=== PATIENT | female | born 1985 | race Hispanic/Latino ===

== ENCOUNTER 2020-11-06 11:16 | Inpatient (IN) | payer OTHER ==
[~2020-11-06] VITALS: Ht 152.4 cm; Wt 89.3 kg
[2020-11-06 11:45] LABS: BASOPHILS % (AUTO) 0.3 % (0.0-5.0); EOSINOPHILS % (AUTO) 0.3 % (0.0-8.0); HEMATOCRIT 38.2 % (36-48); LYMPHOCYTES % (AUTO) 22.7 % (21.0-51.0); MEAN CORPUSCULAR HEMOGLOBIN 29.1 pg (27.0-33.0); MEAN CORPUSCULAR HGB CONC 34.6 g/dL (32.0-36.0); MEAN CORPUSCULAR VOLUME 84.3 fL (79-99); MONOCYTES % (AUTO) 7.7 % (3.0-13.0); NEUTROPHILS % (AUTO) 68.7 % (40.0-77.0); PLATELET COUNT (AUTO) 162 K/uL (130-400); RED BLOOD CELL COUNT(AUTO) 4.53 MIL/uL (4.00-5.50); RED CELL DISTRIBUTION WIDTH 13.2 % (11.0-15.5)
[2020-11-06 11:56] VITALS: BP 87/51
[2020-11-06 11:56] LABS: CREATININE 0.8 mg/dL (0.5-1.5); POTASSIUM 3.4 mmol/L (3.5-5.1)
[2020-11-06 12:00] LABS: ALBUMIN 2.8 g/dL (3.5-5.0); BILIRUBIN,TOTAL 0.4 mg/dL (0.2-1.0); TOTAL PROTEIN, SERUM 7.6 g/dL (6.0-8.3)
[2020-11-06] MEDS ORDERED: AZITHROMYCIN 250 MG TABLET PO ONE ×2 (12:00→13:37)
[2020-11-06] MEDS ORDERED: ALBUTEROL INHALER 90MCG/INH IH PRN (12:00)
[2020-11-06] MEDS ORDERED: ACETAMINOPHEN WITH CODEINE 1 TAB TAB PO ONE (12:00)
[2020-11-06] MEDS ORDERED: CEFTRIAXONE 1G VIAL IVP ONE (12:00)
[2020-11-06 12:10] LABS: ABG BASE EXCESS -1.1 mmol/L (-2.0-3.0); ABG HCO3 21.3 mmol/L (21.0-28.0); ABG OXYGEN SATURATION 92.8 % (95.0-99.0); ABG PCO2 30 mmHg (32-45)
[2020-11-06 12:13] LABS: LYMPHOCYTES % (MANUAL) 28 % (22-44); MONOCYTES % (MANUAL) 5 % (2-9); PLATELET MORPHOLOGY COMMENT ADEQUATE; SEGMENTED NEUTROPHILS % 68 % (40-70)
[2020-11-06] MEDS ORDERED: ONDANSETRON 4MG INJ IV PRN (13:00)
[2020-11-06] MEDS ORDERED: LACTULOSE 20 GM/30 ML UDCUP PO PRN (13:00)
[2020-11-06] MEDS: DOXYCYCLINE 100MG+NS 250ML 250 ML IV SCH (13:00)
[2020-11-06] MEDS ORDERED: PHARMACY COMMUNICATION MISC SCH (13:00)
[2020-11-06] MEDS ORDERED: ERGOCALCIFEROL (VITAMIN D2) 50,000 UNIT CAPSULE PO ONE (13:00)
[2020-11-06] MEDS ORDERED: DOXYCYCLINE 100MG+NS 250ML IV SCH (13:00)
[2020-11-06] MEDS ORDERED: ACETAMINOPHEN 325 MG TAB PO PRN ×2 (13:00)
[2020-11-06] MEDS ORDERED: COMPOUND IV REFRIGERATED 1 EACH IVSOLN MISC PRN (13:30)
[2020-11-06] MEDS ORDERED: REMDESIVIR (EUA) 520 200 MG in 0.9% NACL 250ML 250 ML IV ONE (13:30)
[2020-11-06] MEDS ORDERED: ACETAMINOPHEN WITH CODEINE 1 TAB TAB ONE (13:37)
[2020-11-06] MEDS: CEFTRIAXONE 1G VIAL IVP SCH (13:55)
[2020-11-06] MEDS: DEXAMETHASONE SOD PHOSPHATE 4 MG/ML 1ML VIAL IVP SCH (13:55)
[2020-11-06 14:25] VITALS: BP 124/74
[2020-11-06] MEDS ORDERED: ACETAMINOPHEN 650 MG/20.3 ML UDCUP PO PRN ×2 (15:00)
[2020-11-06 15:25] VITALS: BP 100/58
[2020-11-06 20:08] VITALS: BP 118/70
[2020-11-06] MEDS: FAMOTIDINE 20MG VIAL IV SCH (20:59)
[2020-11-06 22:54] VITALS: BP 124/70
[2020-11-07] MEDS: DOXYCYCLINE 100MG+NS 250ML 250 ML IV SCH ×2 (00:54→14:00)
[2020-11-07] MEDS: CEFTRIAXONE 1G VIAL IVP SCH ×2 (01:03→13:00)
[2020-11-07 02:45] VITALS: BP 124/70
[2020-11-07 05:47] VITALS: BP 116/67
[2020-11-07 06:19] LABS: LYMPHOCYTES % (AUTO) 28.5 % (21.0-51.0); MEAN CORPUSCULAR HEMOGLOBIN 28.3 pg (27.0-33.0); MEAN CORPUSCULAR HGB CONC 33.7 g/dL (32.0-36.0); MEAN CORPUSCULAR VOLUME 84.1 fL (79-99); MONOCYTES % (AUTO) 12.5 % (3.0-13.0); NEUTROPHILS % (AUTO) 58.6 % (40.0-77.0); PLATELET COUNT (AUTO) 202 K/uL (130-400); RED BLOOD CELL COUNT(AUTO) 4.52 MIL/uL (4.00-5.50); RED CELL DISTRIBUTION WIDTH 13.1 % (11.0-15.5); WHITE BLOOD COUNT (AUTO) 2.6 K/uL (4.8-10.8)
[2020-11-07 06:44] LABS: ALBUMIN 2.6 g/dL (3.5-5.0); BILIRUBIN,TOTAL 0.3 mg/dL (0.2-1.0); CREATININE 0.7 mg/dL (0.5-1.5); POTASSIUM 4.2 mmol/L (3.5-5.1); TOTAL PROTEIN, SERUM 7.2 g/dL (6.0-8.3)
[2020-11-07] MEDS: REMDESIVIR LABS MISC SCH (06:48)
[2020-11-07] MEDS: FAMOTIDINE 20MG VIAL IV SCH ×2 (08:55→20:08)
[2020-11-07] MEDS: ASCORBIC ACID 500 MG TAB PO SCH ×2 (08:55→09:00)
[2020-11-07] MEDS: ZINC SULFATE 220 CAPSULE PO SCH ×2 (08:55→09:00)
[2020-11-07] MEDS: ENOXAPARIN SODIUM 40 MG/0.4 ML SYRINGE SQ SCH (08:55)
[2020-11-07] MEDS: DEXAMETHASONE SOD PHOSPHATE 4 MG/ML 1ML VIAL IVP SCH (13:00)
[2020-11-07] MEDS: REMDESIVIR (EUA) 520 100 MG in 0.9% NACL 250ML 250 ML IV SCH (14:00)
[2020-11-07 14:51] VITALS: BP 107/60
[2020-11-07 17:03] VITALS: BP 104/60
[2020-11-07 19:44] VITALS: BP 105/65
[2020-11-07 23:58] VITALS: BP 105/62
[2020-11-08] VITALS (7 sets, daily range): BP systolic 105–135; BP diastolic 57–84
[2020-11-08] MEDS: CEFTRIAXONE 1G VIAL IVP SCH ×2 (01:14→12:48)
[2020-11-08] MEDS: DOXYCYCLINE 100MG+NS 250ML 250 ML IV SCH ×2 (01:14→13:43)
[2020-11-08] MEDS: REMDESIVIR LABS MISC SCH (06:00)
[2020-11-08 07:03] LABS: BASOPHILS % (AUTO) 0.2 % (0.0-5.0); EOSINOPHILS % (AUTO) 1.6 % (0.0-8.0); HEMATOCRIT 37.9 % (36-48); LYMPHOCYTES % (AUTO) 9.6 % (21.0-51.0); MEAN CORPUSCULAR HEMOGLOBIN 28.7 pg (27.0-33.0); MEAN CORPUSCULAR HGB CONC 33.2 g/dL (32.0-36.0); MEAN CORPUSCULAR VOLUME 86.3 fL (79-99); MONOCYTES % (AUTO) 10.6 % (3.0-13.0); NEUTROPHILS % (AUTO) 77.5 % (40.0-77.0); PLATELET COUNT (AUTO) 236 K/uL (130-400); RED BLOOD CELL COUNT(AUTO) 4.39 MIL/uL (4.00-5.50); RED CELL DISTRIBUTION WIDTH 13.2 % (11.0-15.5); WHITE BLOOD COUNT (AUTO) 6.2 K/uL (4.8-10.8)
[2020-11-08 08:16] LABS: ALBUMIN 2.4 g/dL (3.5-5.0); BILIRUBIN,TOTAL 0.4 mg/dL (0.2-1.0); CREATININE 0.7 mg/dL (0.5-1.5); CRP QUANTITATIVE 84.2 mg/L (0.00-9.0); POTASSIUM 3.7 mmol/L (3.5-5.1); TOTAL PROTEIN, SERUM 6.8 g/dL (6.0-8.3)
[2020-11-08] MEDS: ENOXAPARIN SODIUM 40 MG/0.4 ML SYRINGE SQ SCH (08:28)
[2020-11-08] MEDS: FAMOTIDINE 20MG VIAL IV SCH ×2 (08:28→20:49)
[2020-11-08] MEDS: ASCORBIC ACID 500 MG TAB PO SCH (08:34)
[2020-11-08] MEDS: ZINC SULFATE 220 CAPSULE PO SCH (08:35)
[2020-11-08 08:38] LABS: CHOLESTEROL 99 mg/dL (<200); HDL CHOLESTEROL 28 mg/dL (35-85); LDL DIRECT 56 mg/dL (0-99); TRIGLYCERIDES 52 mg/dL (30-200)
[2020-11-08] MEDS ORDERED: IOHEXOL-350 75 ML VIAL IV ONE (09:32)
[2020-11-08] MEDS: DEXAMETHASONE SOD PHOSPHATE 4 MG/ML 1ML VIAL IVP SCH (12:48)
[2020-11-08 14:41] LABS: BASOPHILS % (AUTO) 0.1 % (0.0-5.0); LYMPHOCYTES % (AUTO) 5.9 % (21.0-51.0); MEAN CORPUSCULAR HEMOGLOBIN 28.6 pg (27.0-33.0); MEAN CORPUSCULAR VOLUME 86.9 fL (79-99); MONOCYTES % (AUTO) 7.6 % (3.0-13.0); NEUTROPHILS % (AUTO) 85.7 % (40.0-77.0); PLATELET COUNT (AUTO) 224 K/uL (130-400); RED BLOOD CELL COUNT(AUTO) 4.26 MIL/uL (4.00-5.50); RED CELL DISTRIBUTION WIDTH 13.3 % (11.0-15.5); WHITE BLOOD COUNT (AUTO) 7.3 K/uL (4.8-10.8)
[2020-11-08] MEDS: REMDESIVIR (EUA) 520 100 MG in 0.9% NACL 250ML 250 ML IV SCH (15:54)
[2020-11-09 00:20] VITALS: BP 98/58
[2020-11-09] MEDS: CEFTRIAXONE 1G VIAL IVP SCH ×2 (00:42→14:08)
[2020-11-09] MEDS: DOXYCYCLINE 100MG+NS 250ML 250 ML IV SCH ×2 (00:43→14:07)
[2020-11-09 04:16] VITALS: BP 102/50
[2020-11-09 04:50] LABS: HEMATOCRIT 37.1 % (36-48); LYMPHOCYTES % (AUTO) 12.7 % (21.0-51.0); MEAN CORPUSCULAR HEMOGLOBIN 28.3 pg (27.0-33.0); MEAN CORPUSCULAR HGB CONC 32.6 g/dL (32.0-36.0); MEAN CORPUSCULAR VOLUME 86.9 fL (79-99); MONOCYTES % (AUTO) 11.4 % (3.0-13.0); NEUTROPHILS % (AUTO) 74.9 % (40.0-77.0); PLATELET COUNT (AUTO) 251 K/uL (130-400); RED BLOOD CELL COUNT(AUTO) 4.27 MIL/uL (4.00-5.50); RED CELL DISTRIBUTION WIDTH 13.2 % (11.0-15.5); WHITE BLOOD COUNT (AUTO) 5.2 K/uL (4.8-10.8)
[2020-11-09 05:20] LABS: ALBUMIN 2.3 g/dL (3.5-5.0); BILIRUBIN,TOTAL 0.4 mg/dL (0.2-1.0); CREATININE 0.6 mg/dL (0.5-1.5); CRP QUANTITATIVE 59.8 mg/L (0.00-9.0); POTASSIUM 3.7 mmol/L (3.5-5.1); TOTAL PROTEIN, SERUM 6.4 g/dL (6.0-8.3)
[2020-11-09] MEDS: REMDESIVIR LABS MISC SCH (06:00)
[2020-11-09 07:14] VITALS: BP 98/53
[2020-11-09] MEDS: ENOXAPARIN SODIUM 40 MG/0.4 ML SYRINGE SQ SCH (09:28)
[2020-11-09] MEDS: FAMOTIDINE 20MG VIAL IV SCH ×2 (09:29→21:19)
[2020-11-09] MEDS: ZINC SULFATE 220 CAPSULE PO SCH (09:29)
[2020-11-09] MEDS: ASCORBIC ACID 500 MG TAB PO SCH (09:29)
[2020-11-09 11:42] VITALS: BP 93/43
[2020-11-09] MEDS: REMDESIVIR (EUA) 520 100 MG in 0.9% NACL 250ML 250 ML IV SCH (14:08)
[2020-11-09] MEDS: DEXAMETHASONE SOD PHOSPHATE 4 MG/ML 1ML VIAL IVP SCH (14:08)
[2020-11-09 16:39] VITALS: BP 95/54
[2020-11-09 20:40] VITALS: BP 94/51
[2020-11-10] VITALS (7 sets, daily range): BP systolic 102–117; BP diastolic 48–77
[2020-11-10] MEDS: DOXYCYCLINE 100MG+NS 250ML 250 ML IV SCH ×2 (01:00→14:30)
[2020-11-10] MEDS: CEFTRIAXONE 1G VIAL IVP SCH ×2 (01:00→14:30)
[2020-11-10] MEDS: REMDESIVIR LABS MISC SCH (05:08)
[2020-11-10] MEDS: ASCORBIC ACID 500 MG TAB PO SCH (09:16)
[2020-11-10] MEDS: ZINC SULFATE 220 CAPSULE PO SCH (09:16)
[2020-11-10] MEDS: FAMOTIDINE 20MG VIAL IV SCH ×2 (09:16→20:23)
[2020-11-10] MEDS: ENOXAPARIN SODIUM 40 MG/0.4 ML SYRINGE SQ SCH (09:17)
[2020-11-10 11:31] LABS: BASOPHILS % (AUTO) 0.2 % (0.0-5.0); HEMATOCRIT 37.5 % (36-48); LYMPHOCYTES % (AUTO) 21.7 % (21.0-51.0); MEAN CORPUSCULAR HEMOGLOBIN 29.1 pg (27.0-33.0); MEAN CORPUSCULAR HGB CONC 33.6 g/dL (32.0-36.0); MEAN CORPUSCULAR VOLUME 86.6 fL (79-99); MONOCYTES % (AUTO) 14.2 % (3.0-13.0); NEUTROPHILS % (AUTO) 62.9 % (40.0-77.0); PLATELET COUNT (AUTO) 272 K/uL (130-400); RED BLOOD CELL COUNT(AUTO) 4.33 MIL/uL (4.00-5.50)
[2020-11-10 11:48] LABS: ALBUMIN 2.2 g/dL (3.5-5.0); BILIRUBIN,DIRECT 0.1 mg/dL (0.0-0.3); BILIRUBIN,TOTAL 0.3 mg/dL (0.2-1.0); CREATININE 0.5 mg/dL (0.5-1.5); CRP QUANTITATIVE 35.2 mg/L (0.00-9.0); POTASSIUM 3.5 mmol/L (3.5-5.1); TOTAL PROTEIN, SERUM 6.2 g/dL (6.0-8.3)
[2020-11-10] MEDS: REMDESIVIR (EUA) 520 100 MG in 0.9% NACL 250ML 250 ML IV SCH (14:30)
[2020-11-10] MEDS: DEXAMETHASONE SOD PHOSPHATE 4 MG/ML 1ML VIAL IVP SCH (14:31)
[2020-11-11] MEDS ORDERED: 0.9% NACL 250ML 250 ML ONE (01:21)
[2020-11-11] MEDS: CEFTRIAXONE 1G VIAL IVP SCH (01:31)
[2020-11-11] MEDS: DOXYCYCLINE 100MG+NS 250ML 250 ML IV SCH (01:31)
[2020-11-11 03:48] VITALS: BP 126/67
[2020-11-11 07:04] LABS: BASOPHILS % (AUTO) 0.2 % (0.0-5.0); EOSINOPHILS % (AUTO) 0.2 % (0.0-8.0); HEMATOCRIT 38.4 % (36-48); LYMPHOCYTES % (AUTO) 20.9 % (21.0-51.0); MEAN CORPUSCULAR HEMOGLOBIN 28.3 pg (27.0-33.0); MEAN CORPUSCULAR HGB CONC 32.8 g/dL (32.0-36.0); MEAN CORPUSCULAR VOLUME 86.3 fL (79-99); MONOCYTES % (AUTO) 13.3 % (3.0-13.0); NEUTROPHILS % (AUTO) 64.6 % (40.0-77.0); PLATELET COUNT (AUTO) 311 K/uL (130-400); RED BLOOD CELL COUNT(AUTO) 4.45 MIL/uL (4.00-5.50); WHITE BLOOD COUNT (AUTO) 4.7 K/uL (4.8-10.8)
[2020-11-11 07:18] LABS: ALBUMIN 2.3 g/dL (3.5-5.0); BILIRUBIN,TOTAL 0.3 mg/dL (0.2-1.0); CREATININE 0.6 mg/dL (0.5-1.5); CRP QUANTITATIVE 22.2 mg/L (0.00-9.0); TOTAL PROTEIN, SERUM 6.2 g/dL (6.0-8.3)
[2020-11-11] MEDS: ZINC SULFATE 220 CAPSULE PO SCH (09:16)
[2020-11-11] MEDS: ASCORBIC ACID 500 MG TAB PO SCH (09:16)
[2020-11-11] MEDS: FAMOTIDINE 20MG VIAL IV SCH (09:17)
[2020-11-11] MEDS: ENOXAPARIN SODIUM 40 MG/0.4 ML SYRINGE SQ SCH (09:17)
[2020-11-11] MEDS ORDERED: PANT40TA PO (16:02)
[2020-11-11] MEDS ORDERED: APIX2.5T PO (16:02)
[2020-11-11] MEDS ORDERED: DEXA6TAB PO (16:02)
[2020-11-11] MEDS ORDERED: CEPH500B PO (16:02)
== END 2020-11-11 17:37 | disposition home or self-care (01) | DRG 177 ==
LOC: EDH 11:16 → EDHIP 11:17 → 4BH 11-08 20:40
PROVIDERS: ADMIT Internal Medicine; ATTEND Internal Medicine
PROC: XW033E5 Introduction of Remdesivir Anti-infective into Peripheral Vein, Percutaneous Approach, New Technology Group 5 (ICD-10-PCS; principal; 2020-11-06)
DX: U07.1 COVID-19 (principal); J12.82 Pneumonia due to coronavirus disease 2019; J96.01 Acute respiratory failure with hypoxia; D68.59 Other primary thrombophilia; R79.89 Other specified abnormal findings of blood chemistry
CPT/HCPCS: 36415; 36600; 71045; 71275; 80048; 80053; 80061; 80076; 82550; 82728; 82803; 83615; 84145; 85025; 85378; 86140; 87635; 87804; 87880; 93005; 94760; C9803; G0378; J0696; J1100; J1650; J3490; J7050; Q9967

== ENCOUNTER 2021-04-30 04:04 | Emergency (ER) | payer OTHER ==
[~2021-04-30] VITALS: Ht 152.4 cm; Wt 95.3 kg
[~2021-04-30 04:04] MED LIST: APIX2.5T PO; CEPH500B PO; DEXA6TAB PO; PANT40TA PO
[2021-04-30 04:05] VITALS: BP 136/62
[2021-04-30] MEDS ORDERED: PANTOPRAZOLE 40 MG/VIAL IVP ONE (05:00)
[2021-04-30] MEDS ORDERED: ONDANSETRON 4MG INJ IVP ONE (05:00)
[2021-04-30] MEDS ORDERED: 0.9%NACL 1000ML 1,000 ML IV ONE (05:00)
[2021-04-30] MEDS ORDERED: METOCLOPRAMIDE 10 MG/2 ML VIAL IVP ONE (05:00)
[2021-04-30] MEDS ORDERED: FAMOTIDINE 20MG VIAL IV ONE (05:00)
[2021-04-30 05:41] LABS: BASOPHILS % (AUTO) 0.4 % (0.0-5.0); EOSINOPHILS % (AUTO) 1.7 % (0.0-8.0); HEMATOCRIT 38.7 % (36-48); LYMPHOCYTES % (AUTO) 16.5 % (21.0-51.0); MEAN CORPUSCULAR HEMOGLOBIN 28.7 pg (27.0-33.0); MEAN CORPUSCULAR HGB CONC 32.3 g/dL (32.0-36.0); MONOCYTES % (AUTO) 6.5 % (3.0-13.0); NEUTROPHILS % (AUTO) 74.6 % (40.0-77.0); PLATELET COUNT (AUTO) 338 K/uL (130-400); RED BLOOD CELL COUNT(AUTO) 4.35 MIL/uL (4.00-5.50); RED CELL DISTRIBUTION WIDTH 13.1 % (11.0-15.5); WHITE BLOOD COUNT (AUTO) 13.9 K/uL (4.8-10.8)
[2021-04-30 05:57] LABS: ALBUMIN 3.3 g/dL (3.5-5.0); BILIRUBIN,TOTAL 0.3 mg/dL (0.2-1.0); CREATININE 0.6 mg/dL (0.5-1.5); POTASSIUM 3.5 mmol/L (3.5-5.1)
[2021-04-30 06:00] LABS: APPEARANCE,URINE Clear (CLEAR); BILIRUBIN,URINE Negative (NEGATIVE); COLOR,URINE Yellow (YELLOW); GLUCOSE, URINE (UA) Negative (NEGATIVE); KETONES,URINE Trace mg/dL (NEGATIVE); LEUKOCYTE ESTERASE ,URINE Small (NEGATIVE); NITRATE,URINE Negative (NEGATIVE); OCCULT BLOOD,URINE Large (NEGATIVE); PROTEIN,URINE Trace mg/dL (NEGATIVE)
[2021-04-30 06:05] LABS: HCG,QUAL RESULT NEGATIVE (NEGATIVE)
[2021-04-30 06:28] LABS: RBC,URINE 26-50 /HPF (0-1)
[2021-04-30 06:29] LABS: BACTERIA,URINE None Seen /HPF (None Seen); SQUAMOUS EPITHELIAL CELL,UR Moderate /HPF (0-2); WBC,URINE 0-1 /HPF (0-1)
[2021-04-30] MEDS ORDERED: ONDA4TAB10 PO (06:58)
[2021-04-30] MEDS ORDERED: DICY20TA2 PO (06:58)
[2021-04-30] MEDS ORDERED: PANT40TA PO (06:58)
[2021-04-30] MEDS ORDERED: METO-296 PO (06:58)
[2021-04-30] MEDS ORDERED: MAG/ALUM/SIMETH 30 ML UDCUP PO ONE (07:00)
[2021-04-30] MEDS ORDERED: LIDOCAINE HCL 2% VISCOUS 15 ML UDCUP PO ONE (07:00)
[2021-04-30] MEDS ORDERED: LIDOCAINE HCL 2% VISCOUS 15 ML UDCUP ONE (07:15)
[2021-04-30] MEDS ORDERED: MAG/ALUM/SIMETH 30 ML UDCUP ONE (07:15)
== END 2021-04-30 07:35 | disposition home or self-care (01) ==
LOC: EDH 04:04
DX: K29.70 Gastritis, unspecified, without bleeding (principal); E86.9 Volume depletion, unspecified; Z79.01 Long term (current) use of anticoagulants; Z79.52 Long term (current) use of systemic steroids; Z86.16 Personal history of COVID-19
CPT/HCPCS: 36415; 80053; 81001; 81025; 83690; 85025; 96361; 96374; 96375; 99284; C9113; J2405; J2765; J3490; J7030 ×2

== ENCOUNTER 2023-12-21 23:53 | Emergency (ER) | payer SELFPAY ==
[~2023-12-21] VITALS: Ht 152.4 cm; Wt 97.5 kg
[~2023-12-21 23:53] MED LIST changes: +DICY20TA2 PO; +METO-296 PO; +ONDA-243 PO
[2023-12-22 00:11] LABS: APPEARANCE,URINE CLEAR (CLEAR); BILIRUBIN,URINE NEGATIVE (NEGATIVE); COLOR,URINE LIGHT-YELLOW (YELLOW); GLUCOSE, URINE (UA) NEGATIVE (NEGATIVE); KETONES,URINE NEGATIVE (NEGATIVE); LEUKOCYTE ESTERASE ,URINE NEGATIVE Leu/uL (NEGATIVE); NITRATE,URINE NEGATIVE (NEGATIVE); OCCULT BLOOD,URINE NEGATIVE (NEGATIVE); PH,URINE 6.5 (5.0-8.0); PROTEIN,URINE NEGATIVE (NEGATIVE)
[2023-12-22 00:12] LABS: HCG,QUALITATIVE URINE NEGATIVE (NEGATIVE)
[2023-12-22 00:16] LABS: ADD UA MICROSCOPIC YES
[2023-12-22 00:18] LABS: BACTERIA,URINE RARE /HPF (None Seen); MUCUS,URINE RARE LPF (None Seen); SQUAMOUS EPITHELIAL CELL,UR FEW /HPF (0-2); WBC,URINE 0-1 /HPF (0-1)
[2023-12-22] MEDS: DICYCLOMINE HCL 10 MG/5 ML ML PO ONE (00:22)
[2023-12-22] MEDS: MAG/ALUM/SIMETH 30 ML UDCUP PO ONE (00:22)
[2023-12-22] MEDS: PANTOPrazole 40 MG/VIAL IVP ONE (00:22)
[2023-12-22] MEDS: 0.9%NACL 1000ML 1,000 ML IV ONE (00:22)
[2023-12-22] MEDS: LIDOCAINE HCL 2% VISCOUS 15 ML UDCUP PO ONE (00:22)
[2023-12-22] MEDS: ondanSETRON 4MG INJ IVP ONE (00:22)
[2023-12-22 00:37] LABS: BASOPHILS # (AUTO) 0.08 K/uL (0.00-0.20); BASOPHILS % (AUTO) 0.6 % (0.0-5.0); EOSINOPHILS # (AUTO) 0.38 K/uL (0.00-0.70); EOSINOPHILS % (AUTO) 2.9 % (0.0-8.0); HEMATOCRIT 36.1 % (36-48); IMMATURE GRANULOCYTE ABSOLUTE 0.03 K/uL (0-1); LYMPHOCYTES # (AUTO) 3.5 K/uL (1.0-4.8); LYMPHOCYTES % (AUTO) 27.2 % (21.0-51.0); MEAN CORPUSCULAR HEMOGLOBIN 29.3 pg (27.0-33.0); MEAN CORPUSCULAR HGB CONC 33.8 g/dL (32.0-36.0); MEAN CORPUSCULAR VOLUME 86.8 fL (79-99); MONOCYTES # (AUTO) 0.7 K/uL (0.1-1.0); MONOCYTES % (AUTO) 5.1 % (3.0-13.0); NEUTROPHILS # (AUTO) 8.2 K/uL (1.8-7.7); PLATELET COUNT (AUTO) 354 K/uL (130-400); RED BLOOD CELL COUNT(AUTO) 4.16 MIL/uL (4.00-5.50); WHITE BLOOD COUNT (AUTO) 12.9 K/uL (4.8-10.8)
[2023-12-22 00:50] LABS: ALBUMIN 2.9 g/dL (3.5-5.0); BILIRUBIN,TOTAL 0.2 mg/dL (0.2-1.0); CREATININE 0.8 mg/dL (0.5-1.0); TOTAL PROTEIN, SERUM 7.7 g/dL (6.0-8.3)
[2023-12-22 01:16] LABS: AMPHET/METH SCREEN,URINE NEGATIVE (NEGATIVE); BARBITURATE SCREEN, URINE NEGATIVE (NEGATIVE); BENZODIAZEPINES SCREEN,URINE NEGATIVE (NEGATIVE); CANNABINOID SCREEN,URINE NEGATIVE (NEGATIVE); COCAINE SCREEN,URINE NEGATIVE (NEGATIVE); OPIATE SCREEN,URINE NEGATIVE (NEGATIVE); PHENCYCLIDINE SCREEN,URINE NEGATIVE (NEGATIVE)
[2023-12-22 01:17] LABS: POTASSIUM 3.8 mmol/L (3.5-5.1)
[2023-12-22] MEDS ORDERED: PANT20TA18 PO (01:45)
[2023-12-22 02:25] VITALS: BP 126/88; PULSE 72; RESP 18; TEMP 98; O2SAT 99
== END 2023-12-22 02:28 | disposition home or self-care (01) ==
LOC: EDH 23:53
DX: K29.70 Gastritis, unspecified, without bleeding (principal); R10.13 Epigastric pain; R11.0 Nausea; Z79.01 Long term (current) use of anticoagulants; Z79.52 Long term (current) use of systemic steroids; Z79.899 Other long term (current) drug therapy; Z86.16 Personal history of COVID-19
CPT/HCPCS: 99284; 80053; 80305; 83690; 85025; 81025; 36415; 81001; 96374; 96361; 96375; J7030; J2405; J2470

== ENCOUNTER 2024-01-24 00:14 | Emergency (ER) | payer SELFPAY ==
[~2024-01-24] VITALS: Ht 152.4 cm; Wt 96.6 kg
[~2024-01-24 00:14] MED LIST changes: +PANT20TA18 PO
[2024-01-24 00:39] LABS: BASOPHILS # (AUTO) 0.07 K/uL (0.00-0.20); BASOPHILS % (AUTO) 0.5 % (0.0-5.0); EOSINOPHILS # (AUTO) 0.34 K/uL (0.00-0.70); EOSINOPHILS % (AUTO) 2.4 % (0.0-8.0); HEMATOCRIT 36.7 % (36-48); IMMATURE GRANULOCYTE ABSOLUTE 0.04 K/uL (0-1); LYMPHOCYTES # (AUTO) 3.7 K/uL (1.0-4.8); LYMPHOCYTES % (AUTO) 25.7 % (21.0-51.0); MEAN CORPUSCULAR HGB CONC 33.2 g/dL (32.0-36.0); MEAN CORPUSCULAR VOLUME 87.2 fL (79-99); MONOCYTES # (AUTO) 0.9 K/uL (0.1-1.0); MONOCYTES % (AUTO) 6.1 % (3.0-13.0); NEUTROPHILS # (AUTO) 9.3 K/uL (1.8-7.7); PLATELET COUNT (AUTO) 346 K/uL (130-400); RED BLOOD CELL COUNT(AUTO) 4.21 MIL/uL (4.00-5.50); RED CELL DISTRIBUTION WIDTH 12.9 % (11.0-15.5); WHITE BLOOD COUNT (AUTO) 14.3 K/uL (4.8-10.8)
[2024-01-24 00:47] LABS: CREATININE 0.9 mg/dL (0.5-1.0); POTASSIUM 4.2 mmol/L (3.5-5.1)
[2024-01-24 00:52] LABS: ALBUMIN 3.2 g/dL (3.5-5.0); BILIRUBIN,TOTAL 0.2 mg/dL (0.2-1.0); TOTAL PROTEIN, SERUM 7.6 g/dL (6.0-8.3)
[2024-01-24 00:52] LABS: HCG,QUALITATIVE URINE NEGATIVE (NEGATIVE)
[2024-01-24 00:53] LABS: ADD UA MICROSCOPIC NO; APPEARANCE,URINE CLEAR (CLEAR); BILIRUBIN,URINE NEGATIVE (NEGATIVE); COLOR,URINE LIGHT-YELLOW (YELLOW); GLUCOSE, URINE (UA) NEGATIVE (NEGATIVE); KETONES,URINE NEGATIVE (NEGATIVE); LEUKOCYTE ESTERASE ,URINE NEGATIVE Leu/uL (NEGATIVE); NITRATE,URINE NEGATIVE (NEGATIVE); OCCULT BLOOD,URINE NEGATIVE (NEGATIVE); PROTEIN,URINE NEGATIVE (NEGATIVE); UROBILINOGEN,URINE 0.2 mg/dL (0.2-1.0)
[2024-01-24] MEDS: FAMOTIDINE 20MG VIAL IV ONE (00:54)
[2024-01-24] MEDS: LIDOCAINE HCL 2% VISCOUS 15 ML UDCUP PO ONE (00:54)
[2024-01-24] MEDS: 0.9%NACL 1000ML 1,000 ML IV ONE (00:55)
[2024-01-24] MEDS: DICYCLOMINE HCL 10 MG/5 ML ML PO ONE (00:55)
[2024-01-24] MEDS: MAG/ALUM/SIMETH 30 ML UDCUP PO ONE (00:55)
[2024-01-24] MEDS ORDERED: SUCR1TAB28 PO (02:17)
[2024-01-24] MEDS ORDERED: DICY20TA2 PO (02:17)
[2024-01-24] MEDS ORDERED: OMEP40CA21 PO (02:17)
[2024-01-24 02:23] VITALS: BP 122/83; PULSE 72; RESP 18; TEMP 98.1; O2SAT 99
== END 2024-01-24 02:24 | disposition home or self-care (01) ==
LOC: EDH 00:14
DX: K80.70 Calculus of gallbladder and bile duct without cholecystitis without obstruction (principal); K80.50 Calculus of bile duct without cholangitis or cholecystitis without obstruction; K29.00 Acute gastritis without bleeding; Z79.01 Long term (current) use of anticoagulants; Z79.52 Long term (current) use of systemic steroids; Z79.899 Other long term (current) drug therapy; Z86.16 Personal history of COVID-19
CPT/HCPCS: 99285; 74176; 96374; 96361; 80053; 83690; 85025; 81003; 81025; 36415; J3490; J7030

== ENCOUNTER 2024-06-24 23:22 | Inpatient (IN) | payer SELFPAY ==
[~2024-06-24] VITALS: Ht 152.4 cm; Wt 98.9 kg
[~2024-06-24 23:22] MED LIST changes: +OMEP40CA21 PO; +SUCR1TAB28 PO
[2024-06-24] MEDS: FAMOTIDINE 20MG VIAL IV ONE (23:45)
[2024-06-24] MEDS: ondanSETRON 4MG INJ IVP ONE (23:45)
[2024-06-24] MEDS: morPHINE 2 MG SYG IVP ONE (23:46)
[2024-06-24] MEDS: 0.9%NACL 1000ML 1,000 ML IV ONE (23:47)
[2024-06-24 23:50] LABS: BASOPHILS # (AUTO) 0.08 K/uL (0.00-0.20); BASOPHILS % (AUTO) 0.5 % (0.0-5.0); EOSINOPHILS # (AUTO) 0.36 K/uL (0.00-0.70); EOSINOPHILS % (AUTO) 2.2 % (0.0-8.0); HEMATOCRIT 39.9 % (36-48); IMMATURE GRANULOCYTE ABSOLUTE 0.07 K/uL (0-1); LYMPHOCYTES # (AUTO) 3.5 K/uL (1.0-4.8); LYMPHOCYTES % (AUTO) 21.8 % (21.0-51.0); MEAN CORPUSCULAR HGB CONC 33.1 g/dL (32.0-36.0); MEAN CORPUSCULAR VOLUME 87.7 fL (79-99); MONOCYTES # (AUTO) 1.1 K/uL (0.1-1.0); MONOCYTES % (AUTO) 6.6 % (3.0-13.0); NEUTROPHILS % (AUTO) 68.5 % (40.0-77.0); PLATELET COUNT (AUTO) 377 K/uL (130-400); RED BLOOD CELL COUNT(AUTO) 4.55 MIL/uL (4.00-5.50); RED CELL DISTRIBUTION WIDTH 13.5 % (11.0-15.5)
[2024-06-25] VITALS (7 sets, daily range): BP systolic 103–136; BP diastolic 55–74; PULSE 67–76; RESP 18–20; TEMP 97.8–98.3; O2SAT 99
[2024-06-25 00:02] LABS: CREATININE 0.7 mg/dL (0.5-1.0)
[2024-06-25 00:08] LABS: ALBUMIN 3.6 g/dL (3.5-5.0); BILIRUBIN,DIRECT 0.1 mg/dL (0.0-0.3); BILIRUBIN,TOTAL 0.2 mg/dL (0.2-1.0); TOTAL PROTEIN, SERUM 8.5 g/dL (6.0-8.3)
--- NOTE | 2024-06-25 00:08 | NUR ---
ultrasound at bedside
--- NOTE | 2024-06-25 00:39 | HMCIMG ---
US ABDOMINAL RUQ\E\LTD HISTORY: Acute cholecystitis COMPARISON: None TECHNIQUE: Right upper quadrant abdominal ultrasound study was performed. FINDINGS: Liver measures 17 cm. The visualized portion of the pancreas is within normal limits. Liver is echogenic consistent with liver parenchymal disease. Gallstones are seen in the gallbladder and gallbladder neck region. Common duct measures 5 mm. No evidence of gallbladder wall thickening is seen. Right kidney measures 10.4 x 6.3 x 4.9 cm. No hydronephrosis is seen of the right kidney. IMPRESSION: 1. Gallstones. No ductal dilatation is seen. 2. No hydronephrosis is seen.
[2024-06-25] MEDS: ZOSYN 3.375GM +NS 50ML IV ONE (01:12)
[2024-06-25] MEDS: morPHINE 2 MG SYG IVP ONE (01:13)
--- NOTE | 2024-06-25 01:16 | ERN ---
General Chief Complaint: Abdominal Pain Stated Complaint: C/O EPIGASTRIC PAIN WITH NAUSEA Time Seen by MD: 23:25 Time Seen by Midlevel: 23:25 Source: patient History of Present Illness Initial Comments Patient is a 38-year-old female with a past medical history of gallstones presenting to the emergency department with right upper quadrant abdominal pain. She reports similar episodes in the past and has been seen in the ER multiple times for the same complaint. She reports associated nausea and vomiting. Her symptoms started1 hour prior to arrival. No other complaints reported at this time. Allergies: Coded Allergies: No Known Allergies (Unverified Allergy, Unknown, 11/06/20) piperacillin (Unverified Allergy, Unknown, 06/25/24) tazobactam (Unverified Allergy, Unknown, 06/25/24) Home Meds Discontinued Scripts Omeprazole (Omeprazole) 40 Mg Capsule.dr, 1 CAP PO DAILY for 30 Days, #30 CAP 0 Refills Prov:GWENDOLYN KRAUSE NP 01/24/24 Sucralfate (Carafate) 1 Gram Tablet, 1 GM PO ACHS for 10 Days, #40 TAB Prov:GWENDOLYN KRAUSE NP 01/24/24 Dicyclomine HCl (Bentyl) 20 Mg Tab, 1 TAB PO QID for irritable bowel symptoms, #30 TAB 0 Refills Prov:GWENDOLYN KRAUSE NP 01/24/24 Pantoprazole Sodium (Pantoprazole Sodium) 20 Mg Tablet., 20 MG PO DAILY for 30 Days, #30 TAB Prov:JAYY GOMES MD 12/22/23 Dicyclomine HCl (Bentyl) 20 Mg Tab, 20 MG PO Q6HPRN, #20 TAB 0 Refills Prov:STEPHAN WORRELL MD 04/30/21 Metoclopramide HCl (Reglan) 10 Mg Tablet, 10 MG PO TIDP, #20 TAB 0 Refills Prov:STEPHAN WORRELL MD 04/30/21 Ondansetron (Ondansetron Odt) 4 Mg Tab.rapdis, 4 MG PO Q6HPRN, #20 TAB 0 Refills Prov:STEPHAN WORRELL MD 04/30/21 Pantoprazole Sodium (Protonix) 40 Mg Tablet., 40 MG PO DAILY, #10 TAB 0 Refills Prov:STEPHAN WORRELL MD 04/30/21 Cephalexin Monohydrate (Keflex) 500 Mg Cap, 500 MG PO BID for 3 Days, #6 CAP 0 Refills Prov:MAX CRUZ MD 11/11/20 Pantoprazole Sodium (Protonix) 40 Mg Tablet.dr, 40 MG PO DAILY, #30 TAB 0 Refills Prov:MAX CRUZ MD 11/11/20 Apixaban (Eliquis) 2.5 Mg Tablet, 2.5 MG PO BID for 14 Days, #28 TAB 0 Refills Prov:MAX CRUZ MD 11/11/20 Dexamethasone (Dexamethasone) 6 Mg Tablet, 6 MG PO DAILY for 4 Days, #4 TAB 0 Refills Prov:MAX CRUZ MD 11/11/20 Past Medical History Past Medical History: Other Medical History Other: HX OF GASTRITIS, HX OF GALLSTONES Past Surgical History: Unknown Social History Social History: Negative Female( History) History: Not Applicable LMP: Jun 01, 2024 ROS Dictation CONSTITUTIONAL: Negative except for HPI HEAD/FACE: Negative except for HPI EENT: Negative except for HPI RESPIRATORY: Negative except for HPI GASTROINTESTINAL/ABDOMINAL: Negative except for HPI GENITOURINARY: Negative except for HPI MUSCULOSKELETAL: Negative except for HPI INTEGUMENTARY: Negative except for HPI NEUROLOGICAL/PSYCH: Negative except for HPI HEMATOLOGIC/LYMPHATIC: Negative except for HPI All Systems Negative, Except as noted above. 13 point review of systems assessed and all negative except for above. Physical Exam Physical Exam Dictation Vital Signs reviewed General Appearance: Alert, oriented x 3, obese, moderate distress secondary to pain Head and Face: non-traumatic. Eyes: PERRL, pink conjunctivas, eyelid no trauma, anterior chamber with arcus senilis. Ears: Pinnas intact and no signs of trauma or erythema ear canals clear and no discharge TM no erythema Nose: No discharge, no bleeding. Oropharynx: Mouth normal, tongue pink, pharynx clear,no erythema, tonsils no exudates, no abscesses noted, mucous membrane moist Neck: Supple, non-tender, no thyromegaly, no masses, no JVD, no bruits Breast:Deferred Chest:No tenderness, no crepitus, no paradoxical movement, no retractions Lungs:Clear, well-ventilated, symmetric, no rales, no wheezing, no rhonchi, no stridor, good breath sounds bilaterally Heart: Regular rate, regular rhythm, no murmur, no gallops Vascular: no peripheral edema, Abdomen: Soft, positive bowel sounds, nondistended, no guarding, Right upper quadrant abdominal tenderness, no rebound, no masses no hepatomegaly, no splenomegaly, no Carvajal's sign, no hernias. Rectal: Deferred Genital: Deferred Neurological: Normal speech, motor function intact, sensory function intact Musculoskeletal: Neck nontender, full range of motion, back nontender, full range of motion, Extremities: nontender, full range of motion Skin: Color pink, dry, no turgor, no rash, no lacerations, no abrasions, no contusions. Lymphatic: Deferred Results Laboratory and Microbiology Lab and Micro Result MDM MDM: Differential diagnosis: Acute cholecystitis, pancreatitis, choledocholithiasis Rationale: Tests considered and ordered secondary to shared decision making inc lude: Previous outside records reviewed: Old ER visits. Risk of complication and/or morbidity or mortality of patient management: None Medications-Per medication reconciliation Need for hospitalization: Patient does meet criteria for hospitalization. Need for emergency major/minor surgery: No There are no social concerns with this patient. Prescription drug management Prescriptions will include symptomatic care Patient's prior external medical records from other ER visits were reviewed by me as indicated. Prior testing and results from previous visits were reviewed. Prior tests were taken into account with medical decision making and resource utilization, independent historian/historians were used to obtain complete medical history. I independently interpreted the test that were performed, results were reviewed by me and considered findings on radiology if ordered. Medical management and examination interpretation discussions were had by me with other qualified healthcare professionals as indicated for the patient's care. ED Course [address] [address] IMAGING REPORT Signed PATIENT: TIA IGLESIAS MR#: [id number] : 1985 SEX: F AGE: 38 LOCATION: [facility] ORDER 38 STATUS: [facility] ER REPORT#: [id number] SERVICE 37 REASON: r/o acute cholecystitis ORDERING PHYSICIAN: LAMONT MARI PROCEDURE: ABDRUQLTD - US ABDOMINAL RUQ\LTD US ABDOMINAL RUQ\E\LTD HISTORY: Acute cholecystitis COMPARISON: None TECHNIQUE: Right upper quadrant abdominal ultrasound study was performed. FINDINGS: Liver measures 17 cm. The visualized portion of the pancreas is within normal limits. Liver is echogenic consistent with liver parenchymal disease. Gallstones are seen in the gallbladder and gallbladder neck region. Common duct measures 5 mm. No evidence of gallbladder wall thickening is seen. Right kidney measures 10.4 x 6.3 x 4.9 cm. No hydronephrosis is seen of the right kidney. IMPRESSION: 1. Gallstones. No ductal dilatation is seen. 2. No hydronephrosis is seen. DICTATED BY: TEJ SALAZAR MD DATE: 06/25/2434 ELECTRONICALLY SIGNED BY: TEJ SALAZAR MD DATE: 06/25/2438 DX & DISP Disposition: Inpatient Departure Impression: Primary Impression: Cholelithiasis Additional Impression: Leukocytosis Condition: Stable Scripts No Active Prescriptions or Reported Meds Referrals: SELF,REFERRAL (PCP) I have reviewed the case, and I agree with, Diagnosis and Plan I performed the substantive portion of the visit. I have reviewed and personally made and approve the management plan that is documented in the note by myself or the JUAREZ. I acknowledge for responsibility for the patient's management plan. LAMONT MARI Jun 25, 2024 01:16
--- NOTE | 2024-06-25 01:58 | NUR ---
ADMITTING CORPORATE STRATEGIST CALLED FOR PATIENT HAVING ALLERGIC REACTION.
--- NOTE | 2024-06-25 02:10 | HP ---
[facility] HISTORY AND PHYSICAL Date of Service: Jun 25, 2024 Time of Service: 01:45 PCP: Self Referral HISTORY OF PRESENT ILLNESS: This is a 38 year old female with past medical hstory of gallstone since 2017 and patient has been coming in and out of the hospital for similar complaints as per patient.Patient reports she had similar symptoms last 3 months ago and as usual she came to ER and she was sent home.Patient states she has been having pain arouind her epigastric area and pain radiates to her right upper quadrant then goes to her back.Patient states around 5pm she had 2 enchiladas and after eating she started experiencing abdominal bloatedness and abdominal pain associated with nausea but no vomiting and pain intensity is getting worse so she decided to come to this facility for evaluation.Patient states her last bowel movement was yesterday and it was normal Seen and examined patient in the ER awake,alert and coherent.Patient continue to complain of abdominal pain 8/10 pain level.Patient denies fever,chills ,vomiting ,chest pain,palpitation and shortness of breath. Vital signs temperature 98.2, heart rate 88, blood pressure 138/77 saturation 99% on room air. Labs: WBC 16, hemoglobin 13, hematocrit 39 platelet count 377. Chloride 100, CO2 33, glucose 112, alkaline phosphatase 145, total protein 8.5 lipase 28 serum negative the rest of the chemistry is unremarkable. Abdominal ultrasound result revealed gallstone. No ductal dilatation is seen. No hydronephrosis is seen. While in the ER patient received 1 L NS bolus, Zofran 4 mg IV, famotidine 20 mg IV, morphine 2 mg IV, and Zosyn IV. Received call from ER staff notifying patient developed allergic reaction most likely to Zosyn IV. We will stop Zosyn and we will give Benadryl 50 mg IV. We will admit patient for further medical management. REVIEW OF SYSTEMS CONSTITUTIONAL: Denies fevers, chills, or night sweats. No unintentional weight loss reported. NEUROLOGICAL: Denies headache, amaurosis fugax, motor weakness, sensory deficit, vertigo/spinning sensation, gait abnormalities, or tremors. ENT: No hearing loss, otalgia, otorrhea, rhinitis, rhinorrhea, hoarseness, or sore throat. CARDIOVASCULAR: Denies any exertional angina, dyspnea on exertion, orthopnea, paroxysmal nocturnal dyspnea, palpitations, life-threatening arrhythmias, claudication. PULMONARY: Denies any shortness of breath, cough, phlegm/sputum, hemoptysis, pleuritic chest pain. SLEEP: Denies morning headaches, daytime somnolence or napping. Denies difficulty falling asleep, staying asleep, waking from sleep. Denies knowledge of snoring. GASTROINTESTINAL: Complain of abdominal pain associated with the nausea Denies any type of dysphagia to either liquids or solids. Denies vomiting, pyrosis, early satiety, diarrhea, constipation, or changes in stool consistency or caliber. Denies coffee-ground emesis, hematemesis, hematochezia, or melanotic stools. GENITOURINARY: Denies frequency, urgency, nocturia, hematuria or incontinence (Storage/Irritative symptoms.) Low urinary stream, straining to void, urinary intermittency or hesitancy, splitting of the voiding stream, terminal dribbling. ENDOCRINOLOGIC: Denies polyuria, polydipsia, polyphagia or heat/cold intolerances. HEMATOLOGIC: Denies thrombophilia/previous clots, or coagulopathy/bleeding disorders. ONCOLOGIC: Denies personal history of malignancy. DERMATOLOGIC: Denies rashes or pruritus. PSYCHIATRIC: Denies any suicidal or homicidal ideation. Denies hallucinations. PAST MEDICAL HISTORY: [Gallstone ] PAST SURGICAL HISTORY: [ x2 ] PAST SOCIAL HISTORY: [ Patient lives with children. Patient denies alcohol tobacco and recreational drug use ] FAMILY HISTORY: [ Noncontributory] Coded Allergies: No Known Allergies (Unverified Allergy, Unknown, 11/06/20) piperacillin (Unverified Allergy, Unknown, 06/25/24) tazobactam (Unverified Allergy, Unknown, 06/25/24) PHYSICAL EXAM GENERAL APPEARANCE: The patient is awake, alert, and oriented, in no acute cardiopulmonary distress. NEUROLOGICAL: Cranial nerves II-XII grossly intact. Motor is 5/5 in bilateral upper and lower extremities proximal to distal. No sensory deficits. HEENT: Face is symmetric. Pupils are equal and reactive. Extraocular movements are intact. NECK: Supple. No JVD. No thyromegaly. No submental, submandibular, pre- /postauricular, occipital or supraclavicular lymphadenopathy. CHEST: Normal chest expansion. No Telemetry. LUNGS: Absence of any rales, rhonchi or any wheezing. CARDIOVASCULAR: Regular. S1 and S2 normal. No appreciable rubs, murmurs or gallops. ABDOMEN: Abdominal tenderness around epigastric area, right upper quadrant area Soft and nondistended. There is no voluntary guarding, or rigidity. : Deferred. No Askew. EXTREMITIES: Non-edematous and not cyanotic. No clubbing. Good capillary refill. SKIN: No skin breakdown. Vital Sign (Last 24 Hours) 06/24/24 23:30 Temp 98.2 Pulse 88 Resp 17 B/P (MAP) 138/77 Pulse Ox 99 O2 Delivery Room Air* O2 Flow Rate 0 FiO2 21 LABS: Laboratory: Test 06/24/24 23:42 Range/Units White Blood Count 16.0 H 4.8-10.8 K/uL Red Blood Count 4.55 4.00-5.50 MIL/uL Hemoglobin 13.2 12.0-16.0 g/dL Hematocrit 39.9 36-48 % Mean Corpuscular Volume 87.7 79-99 fL Mean Corpuscular Hemoglobin 29.0 27.0-33.0 pg Mean Corpuscular Hemoglobin Concent 33.1 32.0-36.0 g/dL Red Cell Distribution Width 13.5 11.0-15.5 % Platelet Count 377 130-400 K/uL Mean Platelet Volume 10.3 7.5-10.5 fL Immature Granulocyte % (Auto) 0.4 0-1 % Neutrophils (%) (Auto) 68.5 40.0-77.0 % Lymphocytes (%) (Auto) 21.8 21.0-51.0 % Monocytes (%) (Auto) 6.6 3.0-13.0 % Eosinophils (%) (Auto) 2.2 0.0-8.0 % Basophils (%) (Auto) 0.5 0.0-5.0 % Neutrophils # (Auto) 11.0 H 1.8-7.7 K/uL Lymphocytes # (Auto) 3.5 1.0-4.8 K/uL Monocytes # (Auto) 1.1 H 0.1-1.0 K/uL Eosinophils # (Auto) 0.36 0.00-0.70 K/uL Basophils # (Auto) 0.08 0.00-0.20 K/uL Absolute Immature Granulocyte (auto 0.07 0-1 K/uL Nucleated Red Blood Cells 0.0 0.0-0.19 % Sodium Level 138 136-145 mmol/L Potassium Level 4.0 3.5-5.1 mmol/L Chloride Level 100 L 101-111 mmol/L Carbon Dioxide Level 33 H 21-32 mmol/L Blood Urea Nitrogen 11 7-18 mg/dL Creatinine 0.7 0.5-1.0 mg/dL Glomerular Filtration Rate Calc 115 >90 mL/min Random Glucose 112 H 70-105 mg/dL Total Calcium 9.7 8.5-10.1 mg/dL Total Bilirubin 0.2 0.2-1.0 mg/dL Direct Bilirubin 0.1 0.0-0.3 mg/dL Aspartate Amino Transf (AST/SGOT) 18 10-37 U/L Alanine Aminotransferase (ALT/SGPT) 27 12-78 U/L Alkaline Phosphatase 145 H 50-136 U/L Total Protein 8.5 H 6.0-8.3 g/dL Albumin 3.6 3.5-5.0 g/dL Lipase 28 16-77 U/L Serum Test, Qualitative NEGATIVE NEGATIVE DIAGNOSTICS / RADIOLOGY: [ ] ASSESSMENT: Symptomatic cholelithiasis POA Acute leukocytosis POA Allergic reaction POA History of gallstone POA PLAN: We will admit patient in medical surgical floor We will keep patient nothing by mouth We will starat Azactam IV Q12 H for empiric coverage We will start NS @ 100 ml / hr and re evaluate We will give Benadryl 50 mg IV x1 dose now We will start on Famotidine 20 mg bid for GI prophylaxis We will replace electrolytes as needed per protocol We will add prn medication for fever,pain, nausea and vomiting We will seek general surgery consultation We will request labs in am Further orders to follow depending on above results Case discussed with attending physician and came up with above treatment and plan of care. ADVANCED CARE PLANNING 1. Which of the following were discussed? Hospice Care - No Therapeutic options - Yes Advance Directives - NO Other discussions - 2. Discussed with who? Patient 3. Voluntary nature of this service was explained to the patient? Yes 4. Amount of time spent - _20 5. Reviewed by Physician? (if this service was performed by NPP) Yes Patient seen and examined by me. Agree with note by TELE MARKETING EXECUTIVE SEE ADDITIONAL ORDERS PER CHART DISCUSSED WITH NURSING STAFF HAKAN CANNON TINSMITH APPRENTICE Jun 25, 2024 02:10
[2024-06-25] MEDS: DiphenhydrAMINE HCL 50 MG/ML VIAL IV ONE (02:11)
[2024-06-25 02:20] LABS: APPEARANCE,URINE CLEAR (CLEAR); BILIRUBIN,URINE NEGATIVE (NEGATIVE); COLOR,URINE LIGHT-YELLOW (YELLOW); GLUCOSE, URINE (UA) NEGATIVE (NEGATIVE); KETONES,URINE NEGATIVE (NEGATIVE); LEUKOCYTE ESTERASE ,URINE NEGATIVE Leu/uL (NEGATIVE); NITRATE,URINE NEGATIVE (NEGATIVE); OCCULT BLOOD,URINE NEGATIVE (NEGATIVE); PROTEIN,URINE NEGATIVE (NEGATIVE); UROBILINOGEN,URINE 0.2 mg/dL (0.2-1.0)
[2024-06-25 02:26] LABS: ADD UA MICROSCOPIC YES
[2024-06-25 02:27] LABS: MUCUS,URINE RARE LPF (None Seen); SQUAMOUS EPITHELIAL CELL,UR FEW /HPF (0-2); WBC,URINE 0-1 /HPF (0-1)
--- NOTE | 2024-06-25 02:30 | NUR ---
PT A&OX4. PT SHOWS NO SIGNS OF RESPIRATORY DISTRESS AND DENIES CHEST PAIN.
[2024-06-25] MEDS: 0.9%NACL 1000ML 1,000 ML IV SCH (02:35)
--- NOTE | 2024-06-25 02:40 | NUR ---
REPORT GIVEN TO NICHOLAS MORELOS AT THIS TIME
[2024-06-25] MEDS: AZTREONAM 1 GM VIAL IVPB SCH (05:23)
[2024-06-25 07:03] LABS: BASOPHILS # (AUTO) 0.06 K/uL (0.00-0.20); BASOPHILS % (AUTO) 0.5 % (0.0-5.0); EOSINOPHILS # (AUTO) 0.27 K/uL (0.00-0.70); HEMATOCRIT 33.2 % (36-48); IMMATURE GRANULOCYTE ABSOLUTE 0.04 K/uL (0-1); LYMPHOCYTES # (AUTO) 2.9 K/uL (1.0-4.8); LYMPHOCYTES % (AUTO) 22.1 % (21.0-51.0); MEAN CORPUSCULAR HGB CONC 32.5 g/dL (32.0-36.0); MONOCYTES % (AUTO) 7.4 % (3.0-13.0); NEUTROPHILS # (AUTO) 8.9 K/uL (1.8-7.7); NEUTROPHILS % (AUTO) 67.7 % (40.0-77.0); PLATELET COUNT (AUTO) 304 K/uL (130-400); RED BLOOD CELL COUNT(AUTO) 3.73 MIL/uL (4.00-5.50); RED CELL DISTRIBUTION WIDTH 13.5 % (11.0-15.5); WHITE BLOOD COUNT (AUTO) 13.2 K/uL (4.8-10.8)
[2024-06-25 07:14] LABS: INR 1.03 (0.85-1.15); PROTHROMBIN TIME 10.9 SEC (9.6-11.6)
[2024-06-25 07:16] LABS: PARTIAL THROMBOPLASTIN TIME 28.2 SEC (26.3-35.5)
[2024-06-25 07:21] LABS: ALBUMIN 2.7 g/dL (3.5-5.0); BILIRUBIN,TOTAL 0.2 mg/dL (0.2-1.0); CREATININE 0.7 mg/dL (0.5-1.0); MAGNESIUM 1.7 mg/dL (1.80-2.40); POTASSIUM 4.7 mmol/L (3.5-5.1); TOTAL PROTEIN, SERUM 6.6 g/dL (6.0-8.3)
[2024-06-25] MEDS: FAMOTIDINE 20MG VIAL IV SCH (09:16)
[2024-06-25] MEDS: morPHINE 2 MG SYG IV PRN (09:42)
--- NOTE | 2024-06-25 12:14 | NUR ---
DCP -- Home Patient states lives with her five children in a rental house with walk in shower. States she is unemployed, remains independent and drives self. States she is able to complete ADL's on her own. Denies medical devices, Denies home health services, home care provider or dialysis. PCP - None per patient Pharmacy - [facility]. Upon discharge, Cristobal Montero, Boyfriend [phone] and assist with care, as needed. Referred to Financial Counseling. Provided Community Resource List. Addendum: 06/25/24 at 1219 by DOM BENNETT RN CM Amended: Links added.
--- NOTE | 2024-06-25 12:17 | CONS ---
GENERAL SURGERY CONSULTATION NOTE Date/Time Patient Seen: [06/25/2024 ] Requesting Physician: [ Dr. Tyler Mcclellan] Reason for Consultation: [Symptomatic cholelithiasis] History of Present Illness: [38 year old female admitted for symptomatic cholelithiasis after having worsening abdominal pain, nausea and vomiting yesterday afternoon. She has known about gallstones since 2017 but never saw a surgeon about it before, would only go to ER for management. Surgical Hx of 2 c-sections and BTL. Work up in ED shows abdominal u/s with + gallstones, no biliary dilation, wall thickening or pericholecystic fluids WBCs down trending to 13.2 H&H 10.8/33.2 Normal LFTs and bilirubin at 0.2 Currently NPO] Past Medical History: [ ] Past Surgical History: [ ] Family History: [ ] Social History: [ ] Habits: [Never] smoker. [Denies] alcohol consumption. [Denies] illicit drug use Current Medications Medications (Trade) Dose Ordered Sig/Eleanor Route Start Time Stop Time Status Last Admin Dose Admin Aztreonam (Azactam) 1 gm Q12H IVPB 06/25/24 05:30 07/05/24 05:29 06/25/24 05:23 1 GM Famotidine (Pepcid 20mg Vial) 20 mg BID IV 06/25/24 09:00 07/25/24 08:59 06/25/24 09:16 20 MG Piperacillin Sod/ Tazobactam Sod (Zosyn 3.375gm+NS 50ml) 3.375 gm Q12H IV 06/25/24 13:00 06/25/24 05:10 DC Sodium Chloride 1,000 ml @ 100 mls/hr Q10H IV 06/25/24 02:00 07/25/24 01:59 06/25/24 02:35 100 MLS/HR Review of Systems: CONST: [No fever.] EYES: [No recent vision problems.] ENT: [No congestion, ear pain, or sore throat.] C/V: [No chest pain, palpitations, or edema.] RESP: [No cough, congestion, wheezing or shortness of breath.] GI: [RUQ pain, nausea, vomiting.] : [No dysuria.] SKIN: [No rash.] NEURO: [No headache, focal numbness or weakness.] Physical Examination: GENERAL: [No acute distress, female comfortably resting in bed.] HEAD: [Normocephalic.] EYES: [PERRLA.] ENT: [Hearing grossly intact.] NECK: [Supple.] LUNGS: [Clear breath sounds bilaterally.] HEART: [Normal rate and rhythm.] VASC: [Peripheral pulses +2 bilaterally.] ABD: [RUQ tenderness, no guarding or rigidity.] : [Not examined] EXT: [No edema.] SKIN: [No lesions noted.] NEURO: [Awake, alert, and oriented x3. No focal sensory or strength deficits noted.] Vital Signs (last 8hr) Date Time Temp Pulse Resp B/P (MAP) Pulse Ox O2 Delivery O2 Flow Rate FiO2 06/25/24 11:30 97.9 68 18 114/62 100 Room Air 06/25/24 08:30 98.2 76 18 103/55 99 Room Air 21 Laboratory: [ ] Hematology Labs: Test 06/25/24 06:54 Range/Units White Blood Count 13.2 H 4.8-10.8 K/uL Red Blood Count 3.73 L 4.00-5.50 MIL/uL Hemoglobin 10.8 L 12.0-16.0 g/dL Hematocrit 33.2 L 36-48 % Mean Corpuscular Volume 89.0 79-99 fL Mean Corpuscular Hemoglobin 29.0 27.0-33.0 pg Mean Corpuscular Hemoglobin Concent 32.5 32.0-36.0 g/dL Red Cell Distribution Width 13.5 11.0-15.5 % Platelet Count 304 130-400 K/uL Mean Platelet Volume 10.3 7.5-10.5 fL Immature Granulocyte % (Auto) 0.3 0-1 % Neutrophils (%) (Auto) 67.7 40.0-77.0 % Lymphocytes (%) (Auto) 22.1 21.0-51.0 % Monocytes (%) (Auto) 7.4 3.0-13.0 % Eosinophils (%) (Auto) 2.0 0.0-8.0 % Basophils (%) (Auto) 0.5 0.0-5.0 % Neutrophils # (Auto) 8.9 H 1.8-7.7 K/uL Lymphocytes # (Auto) 2.9 1.0-4.8 K/uL Monocytes # (Auto) 1.0 0.1-1.0 K/uL Eosinophils # (Auto) 0.27 0.00-0.70 K/uL Basophils # (Auto) 0.06 0.00-0.20 K/uL Absolute Immature Granulocyte (auto 0.04 0-1 K/uL Nucleated Red Blood Cells 0.0 0.0-0.19 % Chemistry Labs: Test 06/25/24 06:54 06/24/24 23:42 Range/Units Sodium Level 141 136-145 mmol/L Potassium Level 4.7 3.5-5.1 mmol/L Chloride Level 106 101-111 mmol/L Carbon Dioxide Level 29 21-32 mmol/L Blood Urea Nitrogen 10 7-18 mg/dL Creatinine 0.7 0.5-1.0 mg/dL Glomerular Filtration Rate Calc 115 >90 mL/min Random Glucose 105 70-105 mg/dL Total Calcium 8.6 8.5-10.1 mg/dL Magnesium Level 1.70 L 1.80-2.40 mg/dL Total Bilirubin 0.2 0.2-1.0 mg/dL Aspartate Amino Transf (AST/SGOT) 13 10-37 U/L Alanine Aminotransferase (ALT/SGPT) 20 # 12-78 U/L Alkaline Phosphatase 104 # 50-136 U/L Total Protein 6.6 # 6.0-8.3 g/dL Albumin 2.7 #L 3.5-5.0 g/dL Direct Bilirubin 0.1 0.0-0.3 mg/dL Lipase 28 16-77 U/L Serum Test, Qualitative NEGATIVE NEGATIVE Coagulation Labs: Test 06/25/24 06:54 Range/Units Prothrombin Time 10.9 9.6-11.6 SEC Prothromb Time International Ratio 1.03 0.85-1.15 Activated Partial Thromboplast Time 28.2 26.3-35.5 SEC Diagnostics / Radiology: [Copy/Paste Echos/Imaging Report here] Assessment: [ ] Plan: [Keep NPO Continue with IV fluids and IV antibiotics Consent for lap cholecystectomy with possible open cholecystectomy Patient instructed on risks of surgery include bleeding, blood clots, bleeding and/or injury to other organs Dr. Park updated on patient's status, will be taking to OR ] ATTESTATION BY PHYSICIAN I have seen and examined the patient. I reviewed the documentation, medical decision making, and treatment plan as noted by the mid-level provider above. I agree with the findings and plan of care. MD EDGAR GOINS LETICIA A APRN Jun 25, 2024 12:16
[2024-06-25] MEDS ORDERED: ZOSYN 3.375GM +NS 50ML IV SCH (13:00)
--- NOTE | 2024-06-25 15:26 | NUR ---
CLARIFIED PLAN OF CARE W PRIMARY RN CHART REVIEW IN PROCESS NOTED ANNEALING OVEN OPERATOR NOTES FROM TODAY 06/25 -- THAT SAY TO KEEP PATIENT NPO AND GET CONSENT FOR SURGERY. NO ORDERS IN CHART. PRIMARY RN VERIFIED THAT ANNEALING OVEN OPERATOR ADVISED HER NO ORDERS WERE PLACED YET BECAUSE DATE OF SURGERY IS NOT YET DECIDED. ORDERS FOR CONSENT/ SCHEDULED WILL BE ENTERED WHEN DATE IS CONFIRMED. ANTICIPATING SURGERY ON THIS ADMISSION.
--- NOTE | 2024-06-25 21:26 | NUR ---
PER DR BRAGG NO SURGERY TMRW
[2024-06-25] MEDS: ondanSETRON 4MG INJ IV PRN (21:32)
[2024-06-26] VITALS (7 sets, daily range): BP systolic 102–129; BP diastolic 52–83; PULSE 56–74; RESP 19–20; TEMP 98–98.4; O2SAT 98
[2024-06-26 03:44] LABS: HEMATOCRIT 33.4 % (36-48); MEAN CORPUSCULAR HEMOGLOBIN 29.1 pg (27.0-33.0); MEAN CORPUSCULAR HGB CONC 32.6 g/dL (32.0-36.0); MEAN CORPUSCULAR VOLUME 89.1 fL (79-99); RED BLOOD CELL COUNT(AUTO) 3.75 MIL/uL (4.00-5.50); RED CELL DISTRIBUTION WIDTH 13.5 % (11.0-15.5); WHITE BLOOD COUNT (AUTO) 9.1 K/uL (4.8-10.8)
[2024-06-26 04:00] LABS: ALBUMIN 2.6 g/dL (3.5-5.0); BILIRUBIN,TOTAL 0.4 mg/dL (0.2-1.0); CREATININE 0.7 mg/dL (0.5-1.0); MAGNESIUM 1.8 mg/dL (1.80-2.40); POTASSIUM 4.3 mmol/L (3.5-5.1); TOTAL PROTEIN, SERUM 6.5 g/dL (6.0-8.3)
--- NOTE | 2024-06-26 09:00 | NUR ---
I RESUMED CARE AT 0900 TODAY FROM NICHOLAS MORELOS.
--- NOTE | 2024-06-26 11:31 | PN ---
[facility] PROGRESS NOTE Date of Service: Jun 26, 2024 Time of Service: 11:30 SUBJECTIVE: The patient has been seen and examined at bedside, case discussed with the RN, no acute events overnight, getting IV fluids and IV antibiotics, on clear liquid diet, tolerating well, no nausea, no vomiting, no abdominal pain. REVIEW OF SYSTEMS CONSTITUTIONAL: Denies fevers, chills, or night sweats. No unintentional weight loss reported. NEUROLOGICAL: Denies headache, amaurosis fugax, motor weakness, sensory deficit, vertigo/spinning sensation, gait abnormalities, or tremors. ENT: No hearing loss, otalgia, otorrhea, rhinitis, rhinorrhea, hoarseness, or sore throat. CARDIOVASCULAR: Denies any exertional angina, dyspnea on exertion, orthopnea, paroxysmal nocturnal dyspnea, palpitations, life-threatening arrhythmias, claudication. PULMONARY: Denies any shortness of breath, cough, phlegm/sputum, hemoptysis, pleuritic chest pain. SLEEP: Denies morning headaches, daytime somnolence or napping. Denies difficulty falling asleep, staying asleep, waking from sleep. Denies knowledge of snoring. GASTROINTESTINAL: Complain of abdominal pain associated with the nausea Denies any type of dysphagia to either liquids or solids. Denies vomiting, pyrosis, early satiety, diarrhea, constipation, or changes in stool consistency or caliber. Denies coffee-ground emesis, hematemesis, hematochezia, or melanotic stools. GENITOURINARY: Denies frequency, urgency, nocturia, hematuria or incontinence (Storage/Irritative symptoms.) Low urinary stream, straining to void, urinary intermittency or hesitancy, splitting of the voiding stream, terminal dribbling. ENDOCRINOLOGIC: Denies polyuria, polydipsia, polyphagia or heat/cold intolerances. HEMATOLOGIC: Denies thrombophilia/previous clots, or coagulopathy/bleeding disorders. ONCOLOGIC: Denies personal history of malignancy. DERMATOLOGIC: Denies rashes or pruritus. PSYCHIATRIC: Denies any suicidal or homicidal ideation. Denies hallucinations. PHYSICAL EXAM GENERAL APPEARANCE: The patient is awake, alert, and oriented, in no acute cardiopulmonary distress. NEUROLOGICAL: Cranial nerves II-XII grossly intact. Motor is 5/5 in bilateral upper and lower extremities proximal to distal. No sensory deficits. HEENT: Face is symmetric. Pupils are equal and reactive. Extraocular movements are intact. NECK: Supple. No JVD. No thyromegaly. No submental, submandibular, pre- /postauricular, occipital or supraclavicular lymphadenopathy. CHEST: Normal chest expansion. No Telemetry. LUNGS: Absence of any rales, rhonchi or any wheezing. CARDIOVASCULAR: Regular. S1 and S2 normal. No appreciable rubs, murmurs or gallops. ABDOMEN: Abdominal tenderness around epigastric area, right upper quadrant area Soft and nondistended. There is no voluntary guarding, or rigidity. : Deferred. No Askew. EXTREMITIES: Non-edematous and not cyanotic. No clubbing. Good capillary refill. SKIN: No skin breakdown. Vital Signs (last 8hr) Date Time Temp Pulse Resp B/P (MAP) Pulse Ox O2 Delivery O2 Flow Rate FiO2 06/26/24 08:00 98.4 56 20 115/70 98 Room Air 06/26/24 04:00 98.1 63 20 114/52 98 Room Air LABS: Laboratory: Test 06/26/24 03:24 06/25/24 06:54 06/24/24 23:42 06/24/24 23:28 Range/Units White Blood Count 9.1 # 4.8-10.8 K/uL Red Blood Count 3.75 L 4.00-5.50 MIL/uL Hemoglobin 10.9 L 12.0-16.0 g/dL Hematocrit 33.4 L 36-48 % Mean Corpuscular Volume 89.1 79-99 fL Mean Corpuscular Hemoglobin 29.1 27.0-33.0 pg Mean Corpuscular Hemoglobin Concent 32.6 32.0-36.0 g/dL Red Cell Distribution Width 13.5 11.0-15.5 % Platelet Count 281 130-400 K/uL Mean Platelet Volume 10.3 7.5-10.5 fL Nucleated Red Blood Cells 0.0 0.0-0.19 % Sodium Level 141 136-145 mmol/L Potassium Level 4.3 3.5-5.1 mmol/L Chloride Level 106 101-111 mmol/L Carbon Dioxide Level 28 21-32 mmol/L Blood Urea Nitrogen 7 7-18 mg/dL Creatinine 0.7 0.5-1.0 mg/dL Glomerular Filtration Rate Calc 115 >90 mL/min Random Glucose 88 70-105 mg/dL Total Calcium 8.5 8.5-10.1 mg/dL Magnesium Level 1.80 1.80-2.40 mg/dL Total Bilirubin 0.4 # 0.2-1.0 mg/dL Aspartate Amino Transf (AST/SGOT) 15 10-37 U/L Alanine Aminotransferase (ALT/SGPT) 18 12-78 U/L Alkaline Phosphatase 97 50-136 U/L Total Protein 6.5 6.0-8.3 g/dL Albumin 2.6 L 3.5-5.0 g/dL Immature Granulocyte % (Auto) 0.3 0-1 % Neutrophils (%) (Auto) 67.7 40.0-77.0 % Lymphocytes (%) (Auto) 22.1 21.0-51.0 % Monocytes (%) (Auto) 7.4 3.0-13.0 % Eosinophils (%) (Auto) 2.0 0.0-8.0 % Basophils (%) (Auto) 0.5 0.0-5.0 % Neutrophils # (Auto) 8.9 H 1.8-7.7 K/uL Lymphocytes # (Auto) 2.9 1.0-4.8 K/uL Monocytes # (Auto) 1.0 0.1-1.0 K/uL Eosinophils # (Auto) 0.27 0.00-0.70 K/uL Basophils # (Auto) 0.06 0.00-0.20 K/uL Absolute Immature Granulocyte (auto 0.04 0-1 K/uL Prothrombin Time 10.9 9.6-11.6 SEC Prothromb Time International Ratio 1.03 0.85-1.15 Activated Partial Thromboplast Time 28.2 26.3-35.5 SEC Direct Bilirubin 0.1 0.0-0.3 mg/dL Lipase 28 16-77 U/L Serum Test, Qualitative NEGATIVE NEGATIVE Urine Color LIGHT-YELLOW YELLOW Urine Appearance CLEAR CLEAR Urine pH 6.0 5.0-8.0 Urine Specific [place] 1.029 1.001-1.031 Urine Protein NEGATIVE NEGATIVE mg/dL Urine Glucose (UA) NEGATIVE NEGATIVE mg/dL Urine Ketones NEGATIVE NEGATIVE mg/dL Urine Occult Blood NEGATIVE NEGATIVE Urine Nitrate NEGATIVE NEGATIVE Urine Bilirubin NEGATIVE NEGATIVE mg/dL Urine Urobilinogen 0.2 0.2-1.0 mg/dL Urine Leukocyte Esterase NEGATIVE NEGATIVE Demetrius/uL Urine RBC 2-5 H 0-1 /HPF Urine WBC 0-1 0-1 /HPF Urine Squamous Epithelial Cells FEW 0-2 /HPF Urine Bacteria None None Seen /HPF Current Medications Medications (Trade) Dose Ordered Sig/Eleanor Route PRN Reason Start Time Stop Time Status Last Admin Dose Admin Aztreonam (Azactam) 1 gm Q12H IVPB 06/25/24 05:30 07/05/24 05:29 06/26/24 04:57 1 GM Famotidine (Pepcid 20mg Vial) 20 mg BID IV 06/25/24 09:00 07/25/24 08:59 06/26/24 09:14 20 MG Morphine Sulfate (morPHINE 2MG SYG) 2 mg Q4H PRN IV MODERATE PAIN (4-6) 06/25/24 02:00 07/02/24 01:59 06/25/24 21:33 2 MG Ondansetron HCl (zoFRAN 4MG INJ) 4 mg Q6H PRN IV NAUSEA/VOMITING 06/25/24 02:00 07/25/24 01:59 06/25/24 21:32 4 MG Piperacillin Sod/ Tazobactam Sod (Zosyn 3.375gm+NS 50ml) 3.375 gm Q12H IV 06/25/24 13:00 06/25/24 05:10 DC Sodium Chloride 1,000 ml @ 100 mls/hr Q10H IV 06/25/24 02:00 07/25/24 01:59 06/26/24 09:14 100 MLS/HR DIAGNOSTICS / RADIOLOGY: [ ] ASSESSMENT: Symptomatic cholelithiasis POA Acute leukocytosis POA Allergic reaction POA History of gallstone POA PLAN: Patient remains admitted to the medical floor Continue supportive care with IV fluids, pain medication and IV antibiotics. Patient on clear liquid diet. Patient evaluated by General surgery, possible laparoscopic cholecystectomy over the weekend. NEURO: Minimize central acting medications as possible. Fall Precautions. Well lighted room through the day and minimize interruptions through the night to prevent acute delirium. PULMONARY: Supplemental 02 as needed BiPAP as necessary, for respiratory distress Titrate Fio2 to keep Spo2 > or = 90% DuoNebs and CPT as needed IS hourly while awake for pulmonary hygiene prn Out of bed to chair as tolerated Maintain aspiration precautions at all times CARDIOVASCULAR: Follow hemodynamics. Vital signs per facility protocol GI & NUTRITION: Continue nutritional support Aspirations precautions Prokinetic agents and laxatives as needed KIDNEYS & ELECTROLYTES: Strict monitoring of intake and output Daily weights Avoid nephrotoxic agents Monitor electrolytes and replace as needed Goal urine output of 30mL/hr or 0.5mL/kg/hr Medications to be dosed according to renal function. Avoid contrast if possible ENDOCRINE: Maintain blood glucose between 100-180 at all times. Insulin sliding scale for blood glucose management Hypoglycemia and hyperglycemia protocol in place INFECTIOUS DISEASE: Trend temperature, WBC and procalcitonin level Follow cultures, deescalate antibiotics as soon as possible. Panculture if new onset fever HEMATOLOGY & COAGULATION: Monitor H&H. Keep Hgb > 7 Transfuse 1 unit of PRBC for Hgb < 7 Transfuse 1 pack of platelets of platelets < 20, 000 Watch for any signs and symptoms of bleeding SKIN: Pressure ulcer prevention per facility protocol Specialty mattress as needed ORTHO/REHAB Continue PT/OT PRN: MEDICATIONS Tylenol 650 mg po every 4 hrs for fever zofran 4 mg IV every 6 hrs for n/v Hydralazine 5 mg IV every 4 hrs systolic pressure > 160 bowel regiment: lactulose 20 gm PO BID PRN constipation Supportive measures: Continue GI and DVT prophylaxis Disposition: Possible laparoscopy cholecystectomy over the weekend. All questions answered time spent: > 35 min JENNIFER BILL MD Jun 26, 2024 11:31
[2024-06-27] VITALS (7 sets, daily range): BP systolic 101–123; BP diastolic 49–70; PULSE 62–87; RESP 16–20; TEMP 98–98.6; O2SAT 100
[2024-06-27 05:16] LABS: HEMATOCRIT 33.8 % (36-48); MEAN CORPUSCULAR HEMOGLOBIN 29.2 pg (27.0-33.0); MEAN CORPUSCULAR HGB CONC 33.1 g/dL (32.0-36.0); MEAN CORPUSCULAR VOLUME 88.3 fL (79-99); RED BLOOD CELL COUNT(AUTO) 3.83 MIL/uL (4.00-5.50); RED CELL DISTRIBUTION WIDTH 13.4 % (11.0-15.5); WHITE BLOOD COUNT (AUTO) 12.4 K/uL (4.8-10.8)
[2024-06-27 05:37] LABS: ALBUMIN 2.7 g/dL (3.5-5.0); BILIRUBIN,TOTAL 0.3 mg/dL (0.2-1.0); CREATININE 0.7 mg/dL (0.5-1.0); MAGNESIUM 1.8 mg/dL (1.80-2.40); POTASSIUM 4.6 mmol/L (3.5-5.1); TOTAL PROTEIN, SERUM 6.8 g/dL (6.0-8.3)
--- NOTE | 2024-06-27 10:07 | PN ---
[facility] PROGRESS NOTE Date of Service: Jun 27, 2024 Time of Service: 10:04 SUBJECTIVE: The patient has been seen and examined at bedside, case discussed with the RN, no acute events overnight, getting IV fluids and IV antibiotics, on clear liquid diet, tolerating well, no nausea, no vomiting, no abdominal pain. 06/27 Patient seen and examined, remains on iv fluids and IV antibiotics, getting good pain control with current medical management. Noted to have mild persistent leukocytosis, will change antibiotics to levaquin and flagyl IV. REVIEW OF SYSTEMS CONSTITUTIONAL: Denies fevers, chills, or night sweats. No unintentional weight loss reported. NEUROLOGICAL: Denies headache, amaurosis fugax, motor weakness, sensory deficit, vertigo/spinning sensation, gait abnormalities, or tremors. ENT: No hearing loss, otalgia, otorrhea, rhinitis, rhinorrhea, hoarseness, or sore throat. CARDIOVASCULAR: Denies any exertional angina, dyspnea on exertion, orthopnea, paroxysmal nocturnal dyspnea, palpitations, life-threatening arrhythmias, claudication. PULMONARY: Denies any shortness of breath, cough, phlegm/sputum, hemoptysis, pleuritic chest pain. SLEEP: Denies morning headaches, daytime somnolence or napping. Denies difficulty falling asleep, staying asleep, waking from sleep. Denies knowledge of snoring. GASTROINTESTINAL: Complain of abdominal pain associated with the nausea Denies any type of dysphagia to either liquids or solids. Denies vomiting, pyrosis, early satiety, diarrhea, constipation, or changes in stool consistency or caliber. Denies coffee-ground emesis, hematemesis, hematochezia, or melanotic stools. GENITOURINARY: Denies frequency, urgency, nocturia, hematuria or incontinence (Storage/Irritative symptoms.) Low urinary stream, straining to void, urinary intermittency or hesitancy, splitting of the voiding stream, terminal dribbling. ENDOCRINOLOGIC: Denies polyuria, polydipsia, polyphagia or heat/cold intolerances. HEMATOLOGIC: Denies thrombophilia/previous clots, or coagulopathy/bleeding disorders. ONCOLOGIC: Denies personal history of malignancy. DERMATOLOGIC: Denies rashes or pruritus. PSYCHIATRIC: Denies any suicidal or homicidal ideation. Denies hallucinations. PHYSICAL EXAM GENERAL APPEARANCE: The patient is awake, alert, and oriented, in no acute cardiopulmonary distress. NEUROLOGICAL: Cranial nerves II-XII grossly intact. Motor is 5/5 in bilateral upper and lower extremities proximal to distal. No sensory deficits. HEENT: Face is symmetric. Pupils are equal and reactive. Extraocular movements are intact. NECK: Supple. No JVD. No thyromegaly. No submental, submandibular, pre- /postauricular, occipital or supraclavicular lymphadenopathy. CHEST: Normal chest expansion. No Telemetry. LUNGS: Absence of any rales, rhonchi or any wheezing. CARDIOVASCULAR: Regular. S1 and S2 normal. No appreciable rubs, murmurs or gallops. ABDOMEN: Abdominal tenderness around epigastric area, right upper quadrant area Soft and nondistended. There is no voluntary guarding, or rigidity. : Deferred. No Askew. EXTREMITIES: Non-edematous and not cyanotic. No clubbing. Good capillary refill. SKIN: No skin breakdown. Vital Signs (last 8hr) Date Time Temp Pulse Resp B/P (MAP) Pulse Ox O2 Delivery O2 Flow Rate FiO2 06/27/24 08:00 98.2 74 18 101/59 100 Room Air 21 06/27/24 04:00 98.4 70 20 107/56 98 Room Air LABS: Laboratory: Test 06/27/24 04:44 Range/Units White Blood Count 12.4 H 4.8-10.8 K/uL Red Blood Count 3.83 L 4.00-5.50 MIL/uL Hemoglobin 11.2 L 12.0-16.0 g/dL Hematocrit 33.8 L 36-48 % Mean Corpuscular Volume 88.3 79-99 fL Mean Corpuscular Hemoglobin 29.2 27.0-33.0 pg Mean Corpuscular Hemoglobin Concent 33.1 32.0-36.0 g/dL Red Cell Distribution Width 13.4 11.0-15.5 % Platelet Count 306 130-400 K/uL Mean Platelet Volume 10.8 H 7.5-10.5 fL Nucleated Red Blood Cells 0.0 0.0-0.19 % Sodium Level 140 136-145 mmol/L Potassium Level 4.6 3.5-5.1 mmol/L Chloride Level 105 101-111 mmol/L Carbon Dioxide Level 28 21-32 mmol/L Blood Urea Nitrogen 12 7-18 mg/dL Creatinine 0.7 0.5-1.0 mg/dL Glomerular Filtration Rate Calc 115 >90 mL/min Random Glucose 107 H 70-105 mg/dL Total Calcium 8.7 8.5-10.1 mg/dL Magnesium Level 1.80 1.80-2.40 mg/dL Total Bilirubin 0.3 0.2-1.0 mg/dL Aspartate Amino Transf (AST/SGOT) 17 10-37 U/L Alanine Aminotransferase (ALT/SGPT) 23 12-78 U/L Alkaline Phosphatase 110 50-136 U/L Total Protein 6.8 6.0-8.3 g/dL Albumin 2.7 L 3.5-5.0 g/dL Current Medications Medications (Trade) Dose Ordered Sig/Eleanor Route PRN Reason Start Time Stop Time Status Last Admin Dose Admin Aztreonam (Azactam) 1 gm Q12H IVPB 06/25/24 05:30 07/05/24 05:29 06/27/24 05:34 1 GM Famotidine (Pepcid 20mg Vial) 20 mg BID IV 06/25/24 09:00 07/25/24 08:59 06/27/24 09:15 20 MG Morphine Sulfate (morPHINE 2MG SYG) 2 mg Q4H PRN IV MODERATE PAIN (4-6) 06/25/24 02:00 07/02/24 01:59 06/27/24 09:16 2 MG Ondansetron HCl (zoFRAN 4MG INJ) 4 mg Q6H PRN IV NAUSEA/VOMITING 06/25/24 02:00 07/25/24 01:59 06/27/24 02:23 4 MG Piperacillin Sod/ Tazobactam Sod (Zosyn 3.375gm+NS 50ml) 3.375 gm Q12H IV 06/25/24 13:00 06/25/24 05:10 DC Sodium Chloride 1,000 ml @ 100 mls/hr Q10H IV 06/25/24 02:00 07/25/24 01:59 06/27/24 05:35 100 MLS/HR DIAGNOSTICS / RADIOLOGY: [ ] ASSESSMENT: Symptomatic cholelithiasis POA Acute leukocytosis POA Allergic reaction POA History of gallstone POA PLAN: Patient remains admitted to the medical floor Continue supportive care with IV fluids, pain medication and IV antibiotics. P atient on clear liquid diet. Patient evaluated by General surgery, plan for laparoscopic cholecystectomy on Saturday. Noted to have mild persistent leukocytosis, will change antibiotics to levaquin and flagyl IV. NEURO: Minimize central acting medications as possible. Fall Precautions. Well lighted room through the day and minimize interruptions through the night to prevent acute delirium. PULMONARY: Supplemental 02 as needed BiPAP as necessary, for respiratory distress Titrate Fio2 to keep Spo2 > or = 90% DuoNebs and CPT as needed IS hourly while awake for pulmonary hygiene prn Out of bed to chair as tolerated Maintain aspiration precautions at all times CARDIOVASCULAR: Follow hemodynamics. Vital signs per facility protocol GI & NUTRITION: Continue nutritional support Aspirations precautions Prokinetic agents and laxatives as needed KIDNEYS & ELECTROLYTES: Strict monitoring of intake and output Daily weights Avoid nephrotoxic agents Monitor electrolytes and replace as needed Goal urine output of 30mL/hr or 0.5mL/kg/hr Medications to be dosed according to renal function. Avoid contrast if possible ENDOCRINE: Maintain blood glucose between 100-180 at all times. Insulin sliding scale for blood glucose management Hypoglycemia and hyperglycemia protocol in place INFECTIOUS DISEASE: Trend temperature, WBC and procalcitonin level Follow cultures, deescalate antibiotics as soon as possible. Panculture if new onset fever HEMATOLOGY & COAGULATION: Monitor H&H. Keep Hgb > 7 Transfuse 1 unit of PRBC for Hgb < 7 Transfuse 1 pack of platelets of platelets < 20, 000 Watch for any signs and symptoms of bleeding SKIN: Pressure ulcer prevention per facility protocol Specialty mattress as needed ORTHO/REHAB Continue PT/OT PRN: MEDICATIONS Tylenol 650 mg po every 4 hrs for fever zofran 4 mg IV every 6 hrs for n/v Hydralazine 5 mg IV every 4 hrs systolic pressure > 160 bowel regiment: lactulose 20 gm PO BID PRN constipation Supportive measures: Continue GI and DVT prophylaxis Disposition: Possible laparoscopy cholecystectomy over the weekend. All questions answered time spent: > 35 min JENNIFER BILL MD Jun 27, 2024 10:07
--- NOTE | 2024-06-27 11:29 | PN ---
This is a 38-year-old female with symptomatic cholelithiasis Interval history: This 38-year-old female seen in her room resting Abdominal pain slightly improved WBCs still elevated at 12 with a hemoglobin of 11 LFTs unremarkable Patient otherwise stable Physical exam General: Awake alert and oriented Heart: Regular rate and rhythm} Lungs: [Clear to auscultation no distress Abdomen: [Mild upper quadrant discomfort Assessment : This is a 38-year-old female with symptomatic cholelithiasis Plan: From surgical standpoint patient will be scheduled for cholecystectomy Saturday with Dr. Park Patient to be allowed diet today Surgical team to follow patient closely Consent for cholecystectomy to be obtained for Saturday with Dr. Park Vitals/Labs Vital Signs Date Time Temp Pulse Resp B/P (MAP) Pulse Ox O2 Delivery O2 Flow Rate FiO2 06/27/24 08:00 98.2 74 18 101/59 100 Room Air 21 06/27/24 08:00 0 Laboratory Tests 06/27/24 04:44 Medications Current Medications Sodium Chloride 1,000 ml @ 0 mls/hr ONCE ONCE IV Last administered on 06/24/24at 23:47; Start 06/24/24 at 23:30; Stop 06/24/24 at 23:31; Status DC Ondansetron HCl 4 mg ONCE ONCE IVP Last administered on 06/24/24at 23:45; Start 06/24/24 at 23:30; Stop 06/24/24 at 23:31; Status DC Famotidine 20 mg ONCE ONCE IV Last administered on 06/24/24at 23:45; Start 06/24/24 at 23:30; Stop 06/24/24 at 23:31; Status DC Morphine Sulfate 2 mg ONCE ONCE IVP Last administered on 06/24/24at 23:46; Start 06/24/24 at 23:30; Stop 06/24/24 at 23:31; Status DC Piperacillin Sod/ Tazobactam Sod 3.375 gm ONCE ONCE IV Last administered on 06/25/24at 01:12; Start 06/25/24 at 01:00; Stop 06/25/24 at 01:01; Status DC Morphine Sulfate 2 mg ONCE ONCE IVP Last administered on 06/25/24at 01:13; Start 06/25/24 at 01:00; Stop 06/25/24 at 01:01; Status DC Ondansetron HCl 4 mg Q6H PRN IV Last administered on 06/27/24at 02:23; Start 06/25/24 at 02:00; Stop 07/25/24 at 01:59 Morphine Sulfate 2 mg Q4H PRN IV Last administered on 06/27/24at 09:16; Start 06/25/24 at 02:00; Stop 07/02/24 at 01:59 Sodium Chloride 1,000 ml @ 100 mls/hr Q10H IV Last administered on 06/27/24at 05:35; Start 06/25/24 at 02:00; Stop 07/25/24 at 01:59 Famotidine 20 mg BID IV Last administered on 06/27/24at 09:15; Start 06/25/24 at 09:00; Stop 07/25/24 at 08:59 Piperacillin Sod/ Tazobactam Sod 3.375 gm Q12H IV; Start 06/25/24 at 13:00; Stop 06/25/24 at 05:10; Status DC Diphenhydramine HCl 50 mg ONCE ONCE IV Last administered on 06/25/24at 02:11; Start 06/25/24 at 02:30; Stop 06/25/24 at 02:31; Status DC Aztreonam 1 gm Q12H IVPB Last administered on 06/27/24at 05:34; Start 06/25/24 at 05:30; Stop 06/27/24 at 10:04; Status DC Levofloxacin/ Dextrose 100 ml @ 100 mls/hr Q24H IV; Start 06/27/24 at 10:30; Stop 07/07/24 at 10:29 Metronidazole/ Sodium Chloride 100 ml @ 100 mls/hr Q8H6 IVPB; Start 06/27/24 at 14:00; Stop 07/07/24 at 13:59 KELY DENTON Jr. Jun 27, 2024 11:29
[2024-06-27] MEDS: levoFLOXacin 500 MG/D5W 100 ML 100 ML IV SCH (12:25)
[2024-06-27] MEDS: metRONIDazole 500MG/100ML BAG 100 ML IVPB SCH (14:29)
[2024-06-28] VITALS (7 sets, daily range): BP systolic 103–127; BP diastolic 62–74; PULSE 61–91; RESP 18–20; TEMP 97.9–98.3; O2SAT 99
[2024-06-28 05:15] LABS: MEAN CORPUSCULAR HEMOGLOBIN 29.4 pg (27.0-33.0); MEAN CORPUSCULAR HGB CONC 33.5 g/dL (32.0-36.0); MEAN CORPUSCULAR VOLUME 87.6 fL (79-99); RED BLOOD CELL COUNT(AUTO) 3.88 MIL/uL (4.00-5.50); RED CELL DISTRIBUTION WIDTH 13.5 % (11.0-15.5); WHITE BLOOD COUNT (AUTO) 11.4 K/uL (4.8-10.8)
[2024-06-28 05:39] LABS: ALBUMIN 2.6 g/dL (3.5-5.0); BILIRUBIN,TOTAL 0.2 mg/dL (0.2-1.0); CREATININE 0.7 mg/dL (0.5-1.0); MAGNESIUM 1.6 mg/dL (1.80-2.40); POTASSIUM 4.2 mmol/L (3.5-5.1); TOTAL PROTEIN, SERUM 6.6 g/dL (6.0-8.3)
--- NOTE | 2024-06-28 08:46 | PN ---
This is a 38-year-old female with symptomatic cholelithiasis Interval history: This 38-year-old female seen in her room resting Patient is able to tolerate meals No other acute events reported overnight Physical exam General: Awake alert and oriented Heart: Regular rate and rhythm} Lungs: Clear to auscultation no distress Abdomen: [Soft, nontender, nondistended Assessment : This is a 38-year-old female with symptomatic cholelithiasis Plan: Patient to be scheduled cholecystectomy tomorrow with Dr. Park Nursing to report any further acute events Patient to continue with diet to be made NPO at midnight Surgical team to follow patient closely Vitals/Labs Vital Signs Date Time Temp Pulse Resp B/P (MAP) Pulse Ox O2 Delivery O2 Flow Rate FiO2 06/28/24 07:15 97.9 91 18 112/62 97 Room Air 06/27/24 20:00 0 21 Laboratory Tests 06/28/24 05:08 Medications Current Medications Sodium Chloride 1,000 ml @ 0 mls/hr ONCE ONCE IV Last administered on 06/24/24at 23:47; Start 06/24/24 at 23:30; Stop 06/24/24 at 23:31; Status DC Ondansetron HCl 4 mg ONCE ONCE IVP Last administered on 06/24/24at 23:45; Start 06/24/24 at 23:30; Stop 06/24/24 at 23:31; Status DC Famotidine 20 mg ONCE ONCE IV Last administered on 06/24/24at 23:45; Start 06/24/24 at 23:30; Stop 06/24/24 at 23:31; Status DC Morphine Sulfate 2 mg ONCE ONCE IVP Last administered on 06/24/24at 23:46; Start 06/24/24 at 23:30; Stop 06/24/24 at 23:31; Status DC Piperacillin Sod/ Tazobactam Sod 3.375 gm ONCE ONCE IV Last administered on 06/25/24at 01:12; Start 06/25/24 at 01:00; Stop 06/25/24 at 01:01; Status DC Morphine Sulfate 2 mg ONCE ONCE IVP Last administered on 06/25/24at 01:13; Start 06/25/24 at 01:00; Stop 06/25/24 at 01:01; Status DC Ondansetron HCl 4 mg Q6H PRN IV Last administered on 06/27/24at 20:20; Start 06/25/24 at 02:00; Stop 07/25/24 at 01:59 Morphine Sulfate 2 mg Q4H PRN IV Last administered on 06/27/24at 09:16; Start 06/25/24 at 02:00; Stop 07/02/24 at 01:59 Sodium Chloride 1,000 ml @ 100 mls/hr Q10H IV Last administered on 06/27/24at 23:21; Start 06/25/24 at 02:00; Stop 07/25/24 at 01:59 Famotidine 20 mg BID IV Last administered on 06/27/24at 20:20; Start 06/25/24 at 09:00; Stop 07/25/24 at 08:59 Piperacillin Sod/ Tazobactam Sod 3.375 gm Q12H IV; Start 06/25/24 at 13:00; Stop 06/25/24 at 05:10; Status DC Diphenhydramine HCl 50 mg ONCE ONCE IV Last administered on 06/25/24at 02:11; Start 06/25/24 at 02:30; Stop 06/25/24 at 02:31; Status DC Aztreonam 1 gm Q12H IVPB Last administered on 06/27/24at 05:34; Start 06/25/24 at 05:30; Stop 06/27/24 at 10:04; Status DC Levofloxacin/ Dextrose 100 ml @ 100 mls/hr Q24H IV Last administered on 06/27/24at 12:25; Start 06/27/24 at 10:30; Stop 07/07/24 at 10:29 Metronidazole/ Sodium Chloride 100 ml @ 100 mls/hr Q8H6 IVPB Last administered on 06/28/24at 06:16; Start 06/27/24 at 14:00; Stop 07/07/24 at 13:59 KELY DENTON Jr. Jun 28, 2024 08:46
--- NOTE | 2024-06-28 12:35 | PN ---
[facility] PROGRESS NOTE Date of Service: Jun 28, 2024 Time of Service: 12:34 SUBJECTIVE: The patient has been seen and examined at bedside, case discussed with the RN, no acute events overnight, getting IV fluids and IV antibiotics, on clear liquid diet, tolerating well, no nausea, no vomiting, no abdominal pain. 06/27 Patient seen and examined, remains on iv fluids and IV antibiotics, getting good pain control with current medical management. Noted to have mild persistent leukocytosis, will change antibiotics to levaquin and flagyl IV. 06/28 Patient seen and examined, remains on iv fluids and IV antibiotics, getting good pain control with current medical management. Noted to have mild persistent leukocytosis, will change antibiotics to levaquin and flagyl IV. NPO after midnight, schedule for lap anthony tomorrow REVIEW OF SYSTEMS CONSTITUTIONAL: Denies fevers, chills, or night sweats. No unintentional weight loss reported. NEUROLOGICAL: Denies headache, amaurosis fugax, motor weakness, sensory deficit, vertigo/spinning sensation, gait abnormalities, or tremors. ENT: No hearing loss, otalgia, otorrhea, rhinitis, rhinorrhea, hoarseness, or sore throat. CARDIOVASCULAR: Denies any exertional angina, dyspnea on exertion, orthopnea, paroxysmal nocturnal dyspnea, palpitations, life-threatening arrhythmias, claudication. PULMONARY: Denies any shortness of breath, cough, phlegm/sputum, hemoptysis, pleuritic chest pain. SLEEP: Denies morning headaches, daytime somnolence or napping. Denies difficulty falling asleep, staying asleep, waking from sleep. Denies knowledge of snoring. GASTROINTESTINAL: Complain of abdominal pain associated with the nausea Denies any type of dysphagia to either liquids or solids. Denies vomiting, pyrosis, early satiety, diarrhea, constipation, or changes in stool consistency or caliber. Denies coffee-ground emesis, hematemesis, hematochezia, or melanotic stools. GENITOURINARY: Denies frequency, urgency, nocturia, hematuria or incontinence (Storage/Irritative symptoms.) Low urinary stream, straining to void, urinary intermittency or hesitancy, splitting of the voiding stream, terminal dribbling. ENDOCRINOLOGIC: Denies polyuria, polydipsia, polyphagia or heat/cold intolerances. HEMATOLOGIC: Denies thrombophilia/previous clots, or coagulopathy/bleeding disorders. ONCOLOGIC: Denies personal history of malignancy. DERMATOLOGIC: Denies rashes or pruritus. PSYCHIATRIC: Denies any suicidal or homicidal ideation. Denies hallucinations. PHYSICAL EXAM GENERAL APPEARANCE: The patient is awake, alert, and oriented, in no acute cardiopulmonary distress. NEUROLOGICAL: Cranial nerves II-XII grossly intact. Motor is 5/5 in bilateral upper and lower extremities proximal to distal. No sensory deficits. HEENT: Face is symmetric. Pupils are equal and reactive. Extraocular movements are intact. NECK: Supple. No JVD. No thyromegaly. No submental, submandibular, pre- /postauricular, occipital or supraclavicular lymphadenopathy. CHEST: Normal chest expansion. No Telemetry. LUNGS: Absence of any rales, rhonchi or any wheezing. CARDIOVASCULAR: Regular. S1 and S2 normal. No appreciable rubs, murmurs or gallops. ABDOMEN: Abdominal tenderness around epigastric area, right upper quadrant area Soft and nondistended. There is no voluntary guarding, or rigidity. : Deferred. No Askew. EXTREMITIES: Non-edematous and not cyanotic. No clubbing. Good capillary refill. SKIN: No skin breakdown. Vital Signs (last 8hr) Date Time Temp Pulse Resp B/P (MAP) Pulse Ox O2 Delivery O2 Flow Rate FiO2 06/28/24 11:11 98.2 67 18 114/74 96 Room Air 06/28/24 08:00 Room Air* 0 21 06/28/24 07:15 97.9 91 18 112/62 97 Room Air LABS: Laboratory: Test 06/28/24 05:08 Range/Units White Blood Count 11.4 H 4.8-10.8 K/uL Red Blood Count 3.88 L 4.00-5.50 MIL/uL Hemoglobin 11.4 L 12.0-16.0 g/dL Hematocrit 34.0 L 36-48 % Mean Corpuscular Volume 87.6 79-99 fL Mean Corpuscular Hemoglobin 29.4 27.0-33.0 pg Mean Corpuscular Hemoglobin Concent 33.5 32.0-36.0 g/dL Red Cell Distribution Width 13.5 11.0-15.5 % Platelet Count 271 130-400 K/uL Mean Platelet Volume 10.1 7.5-10.5 fL Nucleated Red Blood Cells 0.0 0.0-0.19 % Sodium Level 140 136-145 mmol/L Potassium Level 4.2 3.5-5.1 mmol/L Chloride Level 105 101-111 mmol/L Carbon Dioxide Level 26 21-32 mmol/L Blood Urea Nitrogen 10 7-18 mg/dL Creatinine 0.7 0.5-1.0 mg/dL Glomerular Filtration Rate Calc 115 >90 mL/min Random Glucose 104 70-105 mg/dL Total Calcium 8.7 8.5-10.1 mg/dL Magnesium Level 1.60 L 1.80-2.40 mg/dL Total Bilirubin 0.2 0.2-1.0 mg/dL Aspartate Amino Transf (AST/SGOT) 16 10-37 U/L Alanine Aminotransferase (ALT/SGPT) 22 12-78 U/L Alkaline Phosphatase 98 50-136 U/L Total Protein 6.6 6.0-8.3 g/dL Albumin 2.6 L 3.5-5.0 g/dL Current Medications Medications (Trade) Dose Ordered Sig/Eleanor Route PRN Reason Start Time Stop Time Status Last Admin Dose Admin Aztreonam (Azactam) 1 gm Q12H IVPB 06/25/24 05:30 06/27/24 10:04 DC 06/27/24 05:34 1 GM Famotidine (Pepcid 20mg Vial) 20 mg BID IV 06/25/24 09:00 07/25/24 08:59 06/28/24 09:14 20 MG Levofloxacin/ Dextrose 100 ml @ 100 mls/hr Q24H IV 06/27/24 10:30 07/07/24 10:29 06/28/24 09:14 100 MLS/HR Metronidazole/ Sodium Chloride 100 ml @ 100 mls/hr Q8H6 IVPB 06/27/24 14:00 07/07/24 13:59 06/28/24 06:16 100 MLS/HR Morphine Sulfate (morPHINE 2MG SYG) 2 mg Q4H PRN IV MODERATE PAIN (4-6) 06/25/24 02:00 07/02/24 01:59 06/27/24 09:16 2 MG Ondansetron HCl (zoFRAN 4MG INJ) 4 mg Q6H PRN IV NAUSEA/VOMITING 06/25/24 02:00 07/25/24 01:59 06/27/24 20:20 4 MG Piperacillin Sod/ Tazobactam Sod (Zosyn 3.375gm+NS 50ml) 3.375 gm Q12H IV 06/25/24 13:00 06/25/24 05:10 DC Sodium Chloride 1,000 ml @ 100 mls/hr Q10H IV 06/25/24 02:00 07/25/24 01:59 06/27/24 23:21 100 MLS/HR DIAGNOSTICS / RADIOLOGY: [ ] ASSESSMENT: Symptomatic cholelithiasis POA Acute leukocytosis POA Allergic reaction POA History of gallstone POA PLAN: Patient remains admitted to the medical floor Continue supportive care with IV fluids, pain medication and IV antibiotics. Patient on clear liquid diet. Patient evaluated by General surgery, plan for laparoscopic cholecystectomy on Saturday. Noted to have mild persistent leukocytosis, will change antibiotics to levaquin and flagyl IV. NEURO: Minimize central acting medications as possible. Fall Precautions. Well lighted room through the day and minimize interruptions through the night to prevent acute delirium. PULMONARY: Supplemental 02 as needed BiPAP as necessary, for respiratory distress Titrate Fio2 to keep Spo2 > or = 90% DuoNebs and CPT as needed IS hourly while awake for pulmonary hygiene prn Out of bed to chair as tolerated Maintain aspiration precautions at all times CARDIOVASCULAR: Follow hemodynamics. Vital signs per facility protocol GI & NUTRITION: Continue nutritional support Aspirations precautions Prokinetic agents and laxatives as needed KIDNEYS & ELECTROLYTES: Strict monitoring of intake and output Daily weights Avoid nephrotoxic agents Monitor electrolytes and replace as needed Goal urine output of 30mL/hr or 0.5mL/kg/hr Medications to be dosed according to renal function. Avoid contrast if possible ENDOCRINE: Maintain blood glucose between 100-180 at all times. Insulin sliding scale for blood glucose management Hypoglycemia and hyperglycemia protocol in place INFECTIOUS DISEASE: Trend temperature, WBC and procalcitonin level Follow cultures, deescalate antibiotics as soon as possible. Panculture if new onset fever HEMATOLOGY & COAGULATION: Monitor H&H. Keep Hgb > 7 Transfuse 1 unit of PRBC for Hgb < 7 Transfuse 1 pack of platelets of platelets < 20, 000 Watch for any signs and symptoms of bleeding SKIN: Pressure ulcer prevention per facility protocol Specialty mattress as needed ORTHO/REHAB Continue PT/OT PRN: MEDICATIONS Tylenol 650 mg po every 4 hrs for fever zofran 4 mg IV every 6 hrs for n/v Hydralazine 5 mg IV every 4 hrs systolic pressure > 160 bowel regiment: lactulose 20 gm PO BID PRN constipation Supportive measures: Continue GI and DVT prophylaxis Disposition: Possible laparoscopy cholecystectomy over the weekend. All questions answered time spent: > 35 min JENNIFER BILL MD Jun 28, 2024 12:35
[2024-06-28] MEDS: MAGNESIUM 2GM PREMIX 50ML 50 ML IV SCH (18:33)
[2024-06-29] VITALS (23 sets, daily range): BP systolic 97–126; BP diastolic 41–75; PULSE 54–101; RESP 15–20; TEMP 97.4–98.6; O2SAT 97
[2024-06-29 04:56] LABS: HEMATOCRIT 33.9 % (36-48); MEAN CORPUSCULAR HEMOGLOBIN 29.6 pg (27.0-33.0); MEAN CORPUSCULAR HGB CONC 33.3 g/dL (32.0-36.0); MEAN CORPUSCULAR VOLUME 88.7 fL (79-99); RED BLOOD CELL COUNT(AUTO) 3.82 MIL/uL (4.00-5.50); RED CELL DISTRIBUTION WIDTH 13.4 % (11.0-15.5); WHITE BLOOD COUNT (AUTO) 13.1 K/uL (4.8-10.8)
[2024-06-29 05:18] LABS: ALBUMIN 2.7 g/dL (3.5-5.0); BILIRUBIN,TOTAL 0.2 mg/dL (0.2-1.0); CREATININE 0.7 mg/dL (0.5-1.0); POTASSIUM 3.9 mmol/L (3.5-5.1); TOTAL PROTEIN, SERUM 6.6 g/dL (6.0-8.3)
[2024-06-29] MEDS: levoFLOXacin 500 MG/D5W 100 ML 100 ML ONE (10:35)
[2024-06-29] MEDS: BUPIvacaine/PF 0.25% 10ML VIAL IJ ONE (10:49)
[2024-06-29] MEDS: BUPIvacaine/PF 0.25% 30ML VIAL IJ ONE (10:50)
[2024-06-29] MEDS ORDERED: dexaMETHasone SOD PHOSPHATE 4 MG/ML 1ML VIAL ONE (11:06)
[2024-06-29] MEDS ORDERED: LIDOCAINE HCL MPF 1% 5ML VIAL ONE (11:06)
[2024-06-29] MEDS ORDERED: FENTanyl CITRate PF 50 MCG/1 ML 5ML AMP IV ONE (11:07)
[2024-06-29] MEDS ORDERED: ondanSETRON 4MG INJ ONE (11:07)
[2024-06-29] MEDS ORDERED: proPOFol 10 MG/ML 20ML VIAL IV ONE (11:07)
[2024-06-29] MEDS ORDERED: MIDAZOLAM HCL 1 MG/ML 2ML VIAL ONE (11:07)
[2024-06-29] MEDS ORDERED: rocuRONium bROMide 10MG/1ML 5ML VL ONE (11:07)
[2024-06-29] MEDS: INDOCYANINE GREEN 25 MG VIAL IJ ONE (11:10)
[2024-06-29] MEDS ORDERED: ketOROlac 30MG VIAL (30MG/ML) ONE (12:04)
[2024-06-29] MEDS ORDERED: GLYCOPYRROLATE 0.2 MG/ML 5 ML VIAL ONE (12:11)
[2024-06-29] MEDS ORDERED: NEOSTIGMINE METHYLSULFATE 1MG/ML IV ONE (12:11)
[2024-06-29] MEDS: ondanSETRON 4MG INJ ONE (12:42)
[2024-06-29] MEDS: MEPERIDINE-PF 50 MG/ML SYG ONE (12:43)
[2024-06-29] MEDS: metoCLOPRAmide 10 MG/2 ML VIAL ONE (13:03)
--- NOTE | 2024-06-29 13:40 | OP ---
Operative Note: DATE OF PROCEDURE: 06/29/24 SURGEON: CATIE BRAGG MD AMBULANCE OPERATIONS SUPERVISOR: [] ANESTHESIA: [] General ANESTHESIOLOGIST/NURSE SPECIALIST: [] PREOPERATIVE DIAGNOSIS: [] Acute cholecystitis POSTOPERATIVE DIAGNOSIS: [] The same SYNOPSIS: [] PROCEDURE: [] Robotic cholecystectomy ESTIMATED BLOOD LOSS: [] Minimal INDICATIONS: [] DESCRIPTION OF PROCEDURE: [] With the patient prepped and draped we did a supraumbilical incision. Using direct technique I placed a balloon trocar. Two da Wilber trochars were placed in each side of the abdomen under direct vision. A 5 mm trocar was placed in the right lateral side. I then went to the console and the robot was docked. I took all adhesions from the gallbladder and I started dissecting the triangle of Calot. we used firefly to identify the cystic duct and CBD.The cystic duct and the cystic artery were clearly identified and both were double clipped and divided. I took the gallbladder from below using cautery dissection. After the gallbladder was completely removed and adequate hemostasis was obtained I remove all the instruments from the abdomen. I undocked the robot and I came back to the bedside of the patient. I confirm hemostasis suction and irrigate and I placed the gallbladder in a bag. I injected 40 cc of Marcaine 0.25% as an abdominal tap block under direct vision. I injected 20 cc in each side of the abdomen. I took out all the trochars under direct vision and the gallbladder through the supraumbilical incision. I closed the fascia of the supraumbilical incision with a 0 Vicryl [id number]. All incisions were closed with staplers. The patient was transferred stable to the recovery room. CATIE BRAGG MD Jun 29, 2024 13:40
--- NOTE | 2024-06-29 14:22 | PN ---
[facility] PROGRESS NOTE Date of Service: Jun 29, 2024 Time of Service: 14:20 SUBJECTIVE: The patient has been seen and examined at bedside, case discussed with the RN, no acute events overnight, getting IV fluids and IV antibiotics, on clear liquid diet, tolerating well, no nausea, no vomiting, no abdominal pain. 06/27 Patient seen and examined, remains on iv fluids and IV antibiotics, getting good pain control with current medical management. Noted to have mild persistent leukocytosis, will change antibiotics to levaquin and flagyl IV. 06/28 Patient seen and examined, remains on iv fluids and IV antibiotics, getting good pain control with current medical management. Noted to have mild persistent leukocytosis, will change antibiotics to levaquin and flagyl IV. NPO after midnight, schedule for lap anthony tomorrow 06/29 patient seen at bedside, no acute events overnight. He has been afebrile, hemodynamically stable saturating well on 2 L nasal cannula. WBC increased from 11.4 up to 13.1, hemoglobin stable at 11.3, similar to yesterday, remainder of her labs are relatively unremarkable. Pending laparoscopic cholecystectomy later today, we will follow up postprocedure. REVIEW OF SYSTEMS CONSTITUTIONAL: Denies fevers, chills, or night sweats. No unintentional weight loss reported. NEUROLOGICAL: Denies headache, amaurosis fugax, motor weakness, sensory deficit, vertigo/spinning sensation, gait abnormalities, or tremors. ENT: No hearing loss, otalgia, otorrhea, rhinitis, rhinorrhea, hoarseness, or sore throat. CARDIOVASCULAR: Denies any exertional angina, dyspnea on exertion, orthopnea, paroxysmal nocturnal dyspnea, palpitations, life-threatening arrhythmias, claudication. PULMONARY: Denies any shortness of breath, cough, phlegm/sputum, hemoptysis, pleuritic chest pain. SLEEP: Denies morning headaches, daytime somnolence or napping. Denies difficulty falling asleep, staying asleep, waking from sleep. Denies knowledge of snoring. GASTROINTESTINAL: Complain of abdominal pain associated with the nausea Denies any type of dysphagia to either liquids or solids. Denies vomiting, pyrosis, early satiety, diarrhea, constipation, or changes in stool consistency or caliber. Denies coffee-ground emesis, hematemesis, hematochezia, or melanotic stools. GENITOURINARY: Denies frequency, urgency, nocturia, hematuria or incontinence (Storage/Irritative symptoms.) Low urinary stream, straining to void, urinary intermittency or hesitancy, splitting of the voiding stream, terminal dribbling. ENDOCRINOLOGIC: Denies polyuria, polydipsia, polyphagia or heat/cold intolerances. HEMATOLOGIC: Denies thrombophilia/previous clots, or coagulopathy/bleeding disorders. ONCOLOGIC: Denies personal history of malignancy. DERMATOLOGIC: Denies rashes or pruritus. PSYCHIATRIC: Denies any suicidal or homicidal ideation. Denies hallucinations. PHYSICAL EXAM GENERAL APPEARANCE: The patient is awake, alert, and oriented, in no acute cardiopulmonary distress. NEUROLOGICAL: Cranial nerves II-XII grossly intact. Motor is 5/5 in bilateral upper and lower extremities proximal to distal. No sensory deficits. HEENT: Face is symmetric. Pupils are equal and reactive. Extraocular movements are intact. NECK: Supple. No JVD. No thyromegaly. No submental, submandibular, pre- /postauricular, occipital or supraclavicular lymphadenopathy. CHEST: Normal chest expansion. No Telemetry. LUNGS: Absence of any rales, rhonchi or any wheezing. CARDIOVASCULAR: Regular. S1 and S2 normal. No appreciable rubs, murmurs or gallops. ABDOMEN: Abdominal tenderness around epigastric area, right upper quadrant area Soft and nondistended. There is no voluntary guarding, or rigidity. : Deferred. No Askew. EXTREMITIES: Non-edematous and not cyanotic. No clubbing. Good capillary refill. SKIN: No skin breakdown. Vital Signs (last 8hr) Date Time Temp Pulse Resp B/P (MAP) Pulse Ox O2 Delivery O2 Flow Rate FiO2 06/29/24 13:18 97.9 57 18 101/58 94 Nasal Cannula 2.0 06/29/24 13:13 59 19 103/54 94 Nasal Cannula 2.0 06/29/24 13:08 56 18 114/51 95 Nasal Cannula 2.0 06/29/24 13:03 59 16 106/55 94 Nasal Cannula 2.0 06/29/24 12:58 57 17 111/52 95 Nasal Cannula 2.0 06/29/24 12:53 56 18 105/54 95 Nasal Cannula 2.0 06/29/24 12:48 57 15 109/50 97 Nasal Cannula 2.0 06/29/24 12:43 54 17 113/57 99 Nonrebreathing Mask 10.0 06/29/24 12:38 55 18 108/56 99 Nonrebreathing Mask 10.0 06/29/24 12:33 97.3 61 16 116/52 99 Nonrebreathing Mask 10.0 06/29/24 08:00 97.7 67 18 114/41 97 Room Air 06/29/24 08:00 97 Room Air* 0 21 LABS: Laboratory: Test 06/29/24 04:48 06/29/24 04:45 Range/Units White Blood Count 13.1 H 4.8-10.8 K/uL Red Blood Count 3.82 L 4.00-5.50 MIL/uL Hemoglobin 11.3 L 12.0-16.0 g/dL Hematocrit 33.9 L 36-48 % Mean Corpuscular Volume 88.7 79-99 fL Mean Corpuscular Hemoglobin 29.6 27.0-33.0 pg Mean Corpuscular Hemoglobin Concent 33.3 32.0-36.0 g/dL Red Cell Distribution Width 13.4 11.0-15.5 % Platelet Count 270 130-400 K/uL Mean Platelet Volume 10.3 7.5-10.5 fL Nucleated Red Blood Cells 0.0 0.0-0.19 % Sodium Level 137 136-145 mmol/L Potassium Level 3.9 3.5-5.1 mmol/L Chloride Level 105 101-111 mmol/L Carbon Dioxide Level 25 21-32 mmol/L Blood Urea Nitrogen 10 7-18 mg/dL Creatinine 0.7 0.5-1.0 mg/dL Glomerular Filtration Rate Calc 115 >90 mL/min Random Glucose 102 70-105 mg/dL Total Calcium 8.5 8.5-10.1 mg/dL Magnesium Level 2.00 1.80-2.40 mg/dL Total Bilirubin 0.2 0.2-1.0 mg/dL Aspartate Amino Transf (AST/SGOT) 19 10-37 U/L Alanine Aminotransferase (ALT/SGPT) 22 12-78 U/L Alkaline Phosphatase 94 50-136 U/L Total Protein 6.6 6.0-8.3 g/dL Albumin 2.7 L 3.5-5.0 g/dL Serum Test, Qualitative NEGATIVE NEGATIVE Current Medications Medications (Trade) Dose Ordered Sig/Eleanor Route PRN Reason Start Time Stop Time Status Last Admin Dose Admin Aztreonam (Azactam) 1 gm Q12H IVPB 06/25/24 05:30 06/27/24 10:04 DC 06/27/24 05:34 1 GM Famotidine (Pepcid 20mg Vial) 20 mg BID IV 06/25/24 09:00 07/25/24 08:59 06/28/24 19:56 20 MG Levofloxacin/ Dextrose 100 ml @ 100 mls/hr Q24H IV 06/27/24 10:30 07/07/24 10:29 06/29/24 10:35 100 MLS/HR Magnesium Sulfate 50 ml @ 0 mls/hr PROTOCOL IV 06/28/24 13:00 07/28/24 12:59 06/28/24 18:33 50 MLS/HR Metronidazole/ Sodium Chloride 100 ml @ 100 mls/hr Q8H6 IVPB 06/27/24 14:00 07/07/24 13:59 06/29/24 06:01 100 MLS/HR Morphine Sulfate (morPHINE 2MG SYG) 2 mg Q4H PRN IV MODERATE PAIN (4-6) 06/25/24 02:00 07/02/24 01:59 06/27/24 09:16 2 MG Ondansetron HCl (zoFRAN 4MG INJ) 4 mg Q6H PRN IV NAUSEA/VOMITING 06/25/24 02:00 07/25/24 01:59 06/27/24 20:20 4 MG Piperacillin Sod/ Tazobactam Sod (Zosyn 3.375gm+NS 50ml) 3.375 gm Q12H IV 06/25/24 13:00 06/25/24 05:10 DC Sodium Chloride 1,000 ml @ 100 mls/hr Q10H IV 06/25/24 02:00 07/25/24 01:59 06/28/24 19:56 100 MLS/HR DIAGNOSTICS / RADIOLOGY: [ ] ASSESSMENT: Symptomatic cholelithiasis POA Acute leukocytosis POA Allergic reaction POA History of gallstone POA PLAN: Patient remains admitted to the medical floor Continue supportive care with IV fluids, pain medication and IV antibiotics. Patient on clear liquid diet. Patient evaluated by General surgery, plan for laparoscopic cholecystectomy today. Noted to have mild persistent leukocytosis, will change antibiotics to levaquin and flagyl IV. Disposition: Pending laparoscopic cholecystectomy and postop course ROBB PRABHAKAR MD Jun 29, 2024 14:22
[2024-06-30 04:28] VITALS: BP 119/68; PULSE 89; RESP 18; TEMP 98.3
[2024-06-30 05:36] LABS: BASOPHILS # (AUTO) 0.02 K/uL (0.00-0.20); BASOPHILS % (AUTO) 0.1 % (0.0-5.0); HEMATOCRIT 33.8 % (36-48); IMMATURE GRANULOCYTE ABSOLUTE 0.09 K/uL (0-1); LYMPHOCYTES # (AUTO) 1.6 K/uL (1.0-4.8); LYMPHOCYTES % (AUTO) 9.3 % (21.0-51.0); MEAN CORPUSCULAR HEMOGLOBIN 28.8 pg (27.0-33.0); MEAN CORPUSCULAR HGB CONC 32.5 g/dL (32.0-36.0); MEAN CORPUSCULAR VOLUME 88.5 fL (79-99); MONOCYTES % (AUTO) 5.6 % (3.0-13.0); NEUTROPHILS # (AUTO) 14.3 K/uL (1.8-7.7); NEUTROPHILS % (AUTO) 84.5 % (40.0-77.0); PLATELET COUNT (AUTO) 313 K/uL (130-400); RED BLOOD CELL COUNT(AUTO) 3.82 MIL/uL (4.00-5.50); RED CELL DISTRIBUTION WIDTH 13.6 % (11.0-15.5); WHITE BLOOD COUNT (AUTO) 16.9 K/uL (4.8-10.8)
[2024-06-30 05:56] LABS: ALBUMIN 2.7 g/dL (3.5-5.0); CREATININE 0.6 mg/dL (0.5-1.0); PHOSPHORUS 2.5 mg/dL (2.5-4.9); POTASSIUM 4.3 mmol/L (3.5-5.1)
[2024-06-30 05:58] LABS: BILIRUBIN,TOTAL 0.4 mg/dL (0.2-1.0); MAGNESIUM 1.9 mg/dL (1.80-2.40); TOTAL PROTEIN, SERUM 6.7 g/dL (6.0-8.3)
--- NOTE | 2024-06-30 06:30 | NUR ---
placed call to regional account director provider for pain medication pending call back
[2024-06-30 08:00] VITALS: BP 118/73; PULSE 77; RESP 18; TEMP 98; O2SAT 97
[2024-06-30] MEDS ORDERED: HYDROcodone/APAP 5/325 1 TAB TABLET PO PRN (08:00)
[2024-06-30] MEDS ORDERED: hydroMORPHone 0.5 MG SYG (0.5MG/0.5ML) IVP PRN (08:00)
[2024-06-30] MEDS ORDERED: acetaMINOPHEN 325 MG TAB PO PRN (08:00)
[2024-06-30] MEDS: HYDROcodone/acetaMINOPHEN 10/325 MG TAB PO PRN (08:21)
[2024-06-30 11:59] VITALS: BP 112/63; PULSE 82; RESP 18; TEMP 98
--- NOTE | 2024-06-30 14:19 | DS ---
Discharge Summary Hospital Course Summary: 38-year-old female presented with right upper quadrant pain associated with nausea and vomiting. Labs and imaging were consistent with acute cholecystitis. General surgery was consulted patient was taken for laparoscopic cholecystectomy, she tolerated the procedure well see the op note for more details. The following day her pain was controlled, she was tolerating a p.o. diet and ambulatory. She was cleared and discharged back home. Cnc Lathe Programmer(s): General surgery Procedure(s): US ABDOMINAL [id number] HISTORY: Acute cholecystitis COMPARISON: None TECHNIQUE: Right upper quadrant abdominal ultrasound study was performed. FINDINGS: Liver measures 17 cm. The visualized portion of the pancreas is within normal limits. Liver is echogenic consistent with liver parenchymal disease. Gallstones are seen in the gallbladder and gallbladder neck region. Common duct measures 5 mm. No evidence of gallbladder wall thickening is seen. Right kidney measures 10.4 x 6.3 x 4.9 cm. No hydronephrosis is seen of the right kidney. IMPRESSION: 1. Gallstones. No ductal dilatation is seen. 2. No hydronephrosis is seen. Assessment/Plan: Symptomatic cholelithiasis s/p laparoscopic cholecystectomy (06/30/24) POA Acute leukocytosis POA Allergic reaction POA History of gallstone POA Discharge Instructions: Follow up with PCP in 3-7 days Follow up with general surgery in 2 weeks Home Medications: Discontinued Scripts Omeprazole (Omeprazole) 40 Mg Capsule.dr, 1 CAP PO DAILY for 30 Days, #30 CAP 0 Refills Prov:GWENDOLYN KRAUSE NP 01/24/24 Sucralfate (Carafate) 1 Gram Tablet, 1 GM PO ACHS for 10 Days, #40 TAB Prov:GWENDOLYN KRAUSE NP 01/24/24 Dicyclomine HCl (Bentyl) 20 Mg Tab, 1 TAB PO QID for irritable bowel symptoms, #30 TAB 0 Refills Prov:GWENDOLYN KRAUSE NP 01/24/24 Pantoprazole Sodium (Pantoprazole Sodium) 20 Mg Tablet., 20 MG PO DAILY for 30 Days, #30 TAB Prov:JAYY GOMES MD 12/22/23 Dicyclomine HCl (Bentyl) 20 Mg Tab, 20 MG PO Q6HPRN, #20 TAB 0 Refills Prov:STEPHAN WORRELL MD 04/30/21 Metoclopramide HCl (Reglan) 10 Mg Tablet, 10 MG PO TIDP, #20 TAB 0 Refills Prov:STEPHAN WORRELL MD 04/30/21 Ondansetron (Ondansetron Odt) 4 Mg Tab.rapdis, 4 MG PO Q6HPRN, #20 TAB 0 Refills Prov:STEPHAN WORRELL MD 04/30/21 Pantoprazole Sodium (Protonix) 40 Mg Tablet., 40 MG PO DAILY, #10 TAB 0 Refills Prov:STEPHAN WORRELL MD 04/30/21 Cephalexin Monohydrate (Keflex) 500 Mg Cap, 500 MG PO BID for 3 Days, #6 CAP 0 Refills Prov:MAX CRUZ MD 11/11/20 Pantoprazole Sodium (Protonix) 40 Mg Tablet.dr, 40 MG PO DAILY, #30 TAB 0 Refi lls Prov:MAX CRUZ MD 11/11/20 Apixaban (Eliquis) 2.5 Mg Tablet, 2.5 MG PO BID for 14 Days, #28 TAB 0 Refills Prov:MAX CRUZ MD 11/11/20 Dexamethasone (Dexamethasone) 6 Mg Tablet, 6 MG PO DAILY for 4 Days, #4 TAB 0 Refills Prov:MAX CRUZ MD 11/11/20 Time spent arranging discharge: 31-60 minutes ROBB PRABHAKAR MD Jun 30, 2024 14:19
[2024-06-30 15:21] VITALS: BP 114/62; PULSE 71; RESP 18; TEMP 98.1
--- NOTE | 2024-06-30 18:16 | NUR ---
PATIENT DISCHARGED HOME ID BAND AND IV REMOVED. DISCHARGE INSTRUCTIONS EXPLAINED AND GIVEN TO PATIENT.PATIENT VERBALIZED UNDERSTANDING. BELONGING PACKED AND TAKEN BY PATIENT. WHEELED DOWN TO PRIVATE CAR.
== END 2024-06-30 18:01 | disposition home or self-care (01) | DRG 419 ==
LOC: EDH 23:22 → EDHIP 23:23 → 3CH 06-25 02:22
PROVIDERS: ADMIT Internal Medicine; ATTEND Internal Medicine
PROC: 8E0W4CZ Robotic Assisted Procedure of Trunk Region, Percutaneous Endoscopic Approach (ICD-10-PCS; 2024-06-29)
PROC: 0FT44ZZ Resection of Gallbladder, Percutaneous Endoscopic Approach (ICD-10-PCS; principal; 2024-06-29 11:13)
DX: K80.00 Calculus of gallbladder with acute cholecystitis without obstruction (principal); D72.829 Elevated white blood cell count, unspecified; Z98.891 History of uterine scar from previous surgery; Z88.0 Allergy status to penicillin
CPT/HCPCS: 36415; 76705; 80048; 80053; 80076; 81001; 83690; 83735; 84100; 84703; 85025; 85027; 85610; 85730; 88304; A4450; G0378; J1100; J1200; J1885; J1956; J2175; J2250; J2270; J2405; J2543; J2704; J2710; J2765; J3010; J3475; J3490; J7030; J7120; A4216; A4222; A4223; A4600; A4930; C1769; J0665